=== PATIENT | female | born 1985 | race Caucasian/White ===

== ENCOUNTER → 2017-10-03 13:48 | Outpatient (CLI) | payer MEDICAID, SELFPAY ==
--- NOTE | 2017-10-03 13:50 | CT_ITS ---
STUDY: CT MAXILLOFACIAL SINUSES REASON FOR EXAM: Female, 32 years old. History of sinusitis. RADIATION DOSAGE (If Supplied By Facility): CTDIvol = ( 33.06 ) mGy, DLP = ( 821.45 ) mGycm TECHNIQUE: The patient was scanned in a multi detector CT scanner. High resolution axial imaging was performed without the administration of intravenous contrast material. Sagittal and coronal images were reconstructed. Individualized dose optimization techniques were used for this CT. COMPARISON: Comparison is made with prior study dated April 27, 2015. FINDINGS: FRONTAL SINUSES: Normal aeration, without mucosal inflammatory disease. ETHMOIDAL SINUSES: Normal aeration, without mucosal inflammatory disease. MAXILLARY SINUSES: Normal aeration, without mucosal inflammatory disease. SPHENOIDAL SINUSES: Normal aeration, without mucosal inflammatory disease. There is patency of the bilateral maxillary infundibuli with normal uncinate processes, ethmoid bullae, and hiatus semilunaris. There are lucrecia bullosa of the bilateral turbinates. Normal bilateral inferior turbinates. Normal midline nasal septum. There is patency of the bilateral nasal airways. The visualized osseous structures are normal. The visualized bilateral orbital contents are normal. CT/Sinus/Facial Bone IMPRESSION: Normal CT examination of the maxillofacial sinuses. Electronically Signed: Jim White MD at 15:16 EST Tel [phone], Service support ,
== END ==
PROVIDERS: Family Provider Family Medicine; PCP Family Medicine; Visit Provider Otolaryngology
DX: J32.9 Chronic sinusitis, unspecified (principal)
CPT/HCPCS: 70486

== ENCOUNTER 2019-04-01 01:38 | Emergency (ER) | payer OTHER, SELFPAY ==
[2019-04-01 01:39] VITALS: BP 141/83; PULSE 128; RESP 20; TEMP 37.3; O2SAT 96; BMI 34.1
--- NOTE | 2019-04-01 02:03 | CT_ITS ---
STUDY: CT ABDOMEN AND PELVIS WITHOUT CONTRAST REASON FOR EXAM: Female, 34 years old. Left upper quadrant pain which radiates to the back. Nausea and vomiting. Previous cholecystectomy. RADIATION DOSAGE (If Supplied By Facility): CTDIvol = ( 10.87 ) mGy, DLP = ( 526.92 ) mGycm TECHNIQUE: Transaxial images were obtained from the dome of the diaphragm to the symphysis pubis without oral contrast, and without intravenous contrast. Sagittal and coronal images were reconstructed. Individualized dose optimization techniques were used for this CT. COMPARISON: None. FINDINGS: The visualized lung bases are unremarkable. The visualized portions of the heart are within normal limits. There is decreased attenuation of the liver consistent with steatosis. There are surgical clips in the gallbladder fossa consistent with a prior cholecystectomy. There is no bile duct dilatation. There is a calcified granuloma in the spleen. Normal pancreas. Normal bilateral adrenal glands. Normal right kidney. Normal left kidney. Normal visualized stomach. Normal small intestine. Normal colon. The appendix is visualized on axial images 106-116 and it appears normal.. There is minimal atherosclerotic calcification of the abdominal aorta, without a demonstrated aneurysm. Normal inferior vena cava. Normal retroperitoneum. Normal urinary bladder. There surgical sutures in the right adnexal region.There is a small amount of free fluid in the posterior cul-de-sac of the pelvis. There is a small umbilical hernia which contains fat, but no bowel. Normal osseous structures. CT/Abdomen/Pelvis without Cont IMPRESSION: Previous cholecystectomy. Fatty liver. Small amount of free fluid in the posterior cul-de-sac of the pelvis, possibly physiologic. No evidence for acute pathology. No evidence for appendicitis or diverticulitis. No evidence for bowel obstruction or ileus. No demonstrated urinary calculi or hydronephrosis. Electronically Signed: Doug Osei MD at 3:20 EDT , Service support ,
--- NOTE | 2019-04-01 02:05 | ED.DCSUM_ITS ---
- ER Visit Summary Date of Service: 04/01/19 Chief Complaint: Abdominal pain History of Present Illness: The patient is a 34 F presenting with abdominal pain. States it started suddenly after eating a hamburger tonight. She has pain in the left upper quadrant. She complains of nausea and vomiting. She states she had diarrhea earlier today. She denies fever. Denies chest pain or shortness of breath. She has a history of GERD, IBS, PCOS. History of previous cholecystectomy. Physical Examination: Vitals are stable. Patient is afebrile. Alert no acute distress. HEENT exam is unremarkable. Neck is supple. Lungs are clear and equal bilaterally. Heart is regular rate and rhythm. Abdomen is soft left upper quadrant tenderness with no rebound or guarding Extremities are unremarkable. Skin is warm and dry. No focal neurologic deficit. Remainder of exam is unremarkable. Emergency Department Course and Treatment: Patient was given IV fluids, morphine, Zofran. CBC shows white count of 14.4. Chemistries normal except for potassium 3.4, glucose 120. Liver lipase are normal. D-dimer is normal. hCG negative. CT abdomen pelvis shows Previous cholecystectomy. Fatty liver. Small amount of free fluid in the posterior cul-de-sac of the pelvis, possibly physiologic. No evidence for acute pathology. No evidence for appendicitis or diverticulitis. No evidence for bowel obstruction or ileus. No demonstrated urinary calculi or hydronephrosis. Patient was given a GI cocktail. On reevaluation she is resting comfortably. She is given prescription for Pepcid and Zofran. Advised to follow-up with her primary care physician. Advised return to ED for worsening complaints. Disposition: Discharge home Impression: Abdominal pain This note was generated with [employer] dictation software. It may contain incorrect words, spelling, and punctuation that were not noted in review of the chart prior to signing ED Disposition - Plan for ED Patient: Instructions: ABDOMINAL PAIN, Unknown Cause, (Female) Prescriptions: Famotidine [Pepcid] 20 mg PO BID #28 tab Prescription Printed Ondansetron [Zofran Odt] 4 mg PO Q8H PRN PRN #10 tab PRN Reason: Nausea Prescription Printed Referrals: Terrence Lombardi MD [Primary Care Provider] - Rupert Chowdhury MD [NON-STAFF] -
[2019-04-01 02:07] LABS: Absolute Lymphocyte Count 5.39 X10^3/uL (0.83-4.51); Absolute Neutrophil Count 7.7 X10^3/uL (2.0-7.7); Basophil# 0.05 X10^3/uL; Basophil% 0.3 % (0-1); Eosinophil# 0.13 X10^3/uL; Eosinophils% 0.9 % (0-5); Hematocrit 39.8 % (37-47); Hemoglobin 13.4 g/dL (12.0-15.0); Lymphocyte # 5.39 X10^3/ul (4.0); Lymphocyte % 37.4 % (19-41); Mean Corp Hgb Conc 33.7 g/dL (32-36); Mean Corpuscular Hgb 29.8 pg (27.0-32.0); Mean Corpuscular Volume 88.4 fL (81-99); Mean Platelet Vol. 9.6 fl (6.2-12.0); Monocyte# 1.01 X10^3/uL; NRBC Flagged by Analyzer 0 % (0-5); Neutrophil # 7.73 X10^3/uL (2.7-7.7); Neutrophil % 53.7 % (47-70); POSITIVE DIFFERENTIAL YES; Platelet Count 336 K/mm3 (150-450); RBC Distribution Width CV 13.1 % (11.6-14.6); RBC Distribution Width SD 42.5 fl (35.1-43.9); White Blood Count 14.4 K/mm3 (4.4-11.0)
[2019-04-01 02:10] LABS: Internal QC Validated? YES +Cl - CLEAR BKGD; Pregnancy, Serum, hCG Quali. NEGATIVE Negative
[2019-04-01] MEDS: morphine 8 MG/ML Syringe IV (02:10)
[2019-04-01] MEDS: Ondansetron 4 MG/2 ML Vial IV (02:11)
[2019-04-01] MEDS: 0.9% Normal Saline 1,000 ML 1000 ML IV (02:11)
[2019-04-01 02:13] LABS: Anion Gap 8 (5-15); BUN 14 mg/dL (7-18); BUN/Creat Ratio 16.4 RATIO (10-20); Calcium,Total 9.1 mg/dL (8.5-10.1); Chloride 105 mmol/L (98-107); Creatinine, Serum 0.86 mg/dL (0.55-1.02); EST Glomerular Filtration Rate 82 mL/min (>60); Est Glom Filt Rate - Afr Amer 99 mL/min (>60); Estimated Creatinine Clearance 74.28 ml/min; Glucose 120 mg/dL (74-106); Potassium 3.4 mmol/L (3.5-5.1); Sodium Level 139 mmol/L (136-145)
[2019-04-01 02:19] LABS: Differential Indicated SCAN CRITERIA MET
[2019-04-01 02:30] LABS: AST(SGOT) 20 U/L (15-37); Alanine Aminotransfer ALT/SGPT 33 U/L (13-56); Alkaline Phosphatase 80 U/L (45-117); Bilirubin, Direct 0.18 mg/dL (0.00-0.30); Globulin 4.1 g/dL (2.2-4.2); Lipase 116 U/L (73-393); Protein, Total 8.1 g/dL (6.4-8.2)
[2019-04-01 02:49] LABS: D-Dimer Quantitative (DVT/PE) 0.41 FEU/ug/m (0.27-0.49)
[2019-04-01 02:57] LABS: Reactive Lymphocyte 1+
[2019-04-01 03:28] LABS: Bacteria 0 SEEN /hpf (None Seen); Mucous, Urine 0 SEEN /hpf (<or=2+); Red Blood Cells-Urine 0 SEEN /hpf (0-5); White Blood Cells 0 SEEN /hpf (0-5)
[2019-04-01 03:29] LABS: Color, Urine Yellow (Yellow); Glucose, Dipstick Normal (Normal); Ketone-Dipstick Negative (Negative); Leukocyte Esterase-Dipstick Negative /ul (Negative); Nitrite-Dipstick Negative (Negative); Occult Blood-Urine 10 /ul (Negative); Protein-Dipstick Negative (Negative); Specific Gravity, Urine 1.015 (1.002-1.030); Urine Bilirubin Dipstick Negative (Negative); Urine Clarity Clear (Clear); Urine Urobilinogen Normal (Normal)
[2019-04-01 03:36] LABS: Squamous Epithelial Cells - UA 0-5 SEEN /hpf (5-10)
[2019-04-01 03:38] VITALS: BP 111/73; PULSE 98; RESP 18; O2SAT 95
[2019-04-01] MEDS: Mag Hydrox/Al Hydrox/Simeth 30 ML UDC PO (04:59)
[2019-04-01 05:00] VITALS: BP 118/82; PULSE 97; RESP 18; O2SAT 97
--- NOTE | 2019-04-01 05:24 | ED.DEP ---
ED Disposition - Plan for ED Patient: Instructions: ABDOMINAL PAIN, Unknown Cause, (Female) Prescriptions: Famotidine [Pepcid] 20 mg PO BID #28 tablet Ondansetron [Zofran Odt] 4 mg PO Q8H PRN PRN #10 tablet PRN Reason: Nausea Referrals: Terrence Lombardi MD [Primary Care Provider] - Rupert Chowdhury MD [NON-STAFF] -
[2019-04-01] MEDS: Morphine 4 MG/ML Syringe IV (05:59)
[2019-04-01 06:23] VITALS: BP 123/82; PULSE 99; RESP 19; O2SAT 97
== END 2019-04-01 06:28 | disposition home or self-care (01) ==
LOC: ED 02:47
PROVIDERS: Emergency Provider Emergency Medicine; Family Provider Family Medicine; PCP Family Medicine
DX: R10.9 Unspecified abdominal pain (principal); Z90.49 Acquired absence of other specified parts of digestive tract; K76.0 Fatty (change of) liver, not elsewhere classified; K21.9 Gastro-esophageal reflux disease without esophagitis; K58.9 Irritable bowel syndrome, unspecified; E28.2 Polycystic ovarian syndrome
CPT/HCPCS: 74176; 80048; 80076; 81001; 83690; 84703; 85025; 85379; 96361; 96374; 96375; 96376; 99284; J7030; A4216; J2405

== ENCOUNTER → 2019-06-20 14:10 | Outpatient (CLI) | payer OTHER, SELFPAY ==
[2019-06-23 14:08] LABS: SJOGREN'S Anti-SS-A test < 0.2 AI (0.0-0.9); SJOGREN'S Anti-SS-B test < 0.2 AI (0.0-0.9)
[2019-06-23 14:37] LABS: ANTINUCLEAR ANTIBODIES DIRECT Negative (Negative)
== END ==
PROVIDERS: Family Provider Family Medicine; PCP Family Medicine; Referring Provider Otolaryngology Otolaryngology/Facial Plastic Surgery; Visit Provider Otolaryngology Otolaryngology/Facial Plastic Surgery
DX: J02.9 Acute pharyngitis, unspecified (principal); K11.20 Sialoadenitis, unspecified; M35.00 Sjogren syndrome, unspecified
CPT/HCPCS: 36415; 86038; 86235; 87070

== ENCOUNTER → 2021-04-28 16:48 | Outpatient (CLI) | payer OTHER, SELFPAY | PROVIDERS: PCP Family Medicine; Visit Provider Physician Assistant | DX: R51.9 Headache, unspecified (principal) | CPT/HCPCS: 87635; U0005; U0003 ==

== ENCOUNTER 2021-10-03 10:16 | Emergency (ER) | payer OTHER, SELFPAY ==
[2021-10-03 10:17] VITALS: BP 117/98; PULSE 111; RESP 18; TEMP 36.4; O2SAT 99; BMI 38.4
[2021-10-03 10:24] VITALS: O2SAT 100
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
[2021-10-03 11:09] VITALS: BP 124/89; PULSE 98; RESP 16; O2SAT 96
[2021-10-03] MEDS: Morphine 4 MG/ML Syringe IV ×2 (11:10→13:06)
[2021-10-03] MEDS: Ondansetron 4 MG/2 ML Vial IV (11:11)
[2021-10-03] MEDS: LORazepam 2 MG/ML Syringe 0.5 MG IV (11:12)
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
[2021-10-03] MEDS: cycloBENZAPRine HCl 10 MG Tablet PO (13:06)
[2021-10-03] MEDS: Ketorolac 30 MG/ML Syringe IV (13:06)
[2021-10-03 14:01] VITALS: BP 130/81; PULSE 87; RESP 18; O2SAT 98
== END 2021-10-03 14:01 | disposition home or self-care (01) ==
PROVIDERS: Emergency Provider Emergency Medicine; PCP Family Medicine; Visit Provider Emergency Medicine
DX: S09.90XA Unspecified injury of head, initial encounter (principal); F41.9 Anxiety disorder, unspecified; S16.1XXA Strain of muscle, fascia and tendon at neck level, initial encounter; S39.012A Strain of muscle, fascia and tendon of lower back, initial encounter; M79.642 Pain in left hand; V49.40XA Driver injured in collision with unspecified motor vehicles in traffic accident, initial encounter; Y92.410 Unspecified street and highway as the place of occurrence of the external cause
CPT/HCPCS: 70450; 72125; 72131; 73130; 96374; 96375; 96376; 99285; A4216; J2405

== ENCOUNTER 2022-04-12 23:04 | Emergency (ER) | payer OTHER, SELFPAY ==
[2022-04-12 23:05] VITALS: BP 130/82; PULSE 128; RESP 16; TEMP 36.8; O2SAT 97; BMI 33.5
--- NOTE | 2022-04-12 23:35 | CT_ITS ---
STUDY: CT ABDOMEN AND PELVIS WITHOUT CONTRAST REASON FOR EXAM: Female, 37 years old. right flank pain RADIATION DOSAGE (If Supplied By Facility): CTDIvol = ( 11.39 ) mGy, DLP = ( 537.69 ) mGycm TECHNIQUE: Transaxial images were obtained from the dome of the diaphragm to the symphysis pubis without oral contrast, and without intravenous contrast. Sagittal and coronal images were reconstructed. Individualized dose optimization techniques were used for this CT. COMPARISON: 04/01/2019 FINDINGS: Lung bases clear. Diffuse hepatic steatosis. Status post cholecystectomy. Unremarkable spleen, pancreas, and adrenals on this unenhanced study. Bowel loops nonobstructed. Normal appendix. No free air or free fluid. No adenopathy. Minimal vascular calcification. No abdominal aortic aneurysm. Every small fat-containing umbilical hernia. Sections through the pelvis demonstrate no adnexal mass. Urinary bladder incompletely distended. No acute osseous abnormalities. CT/Abdomen/Pelvis without Cont IMPRESSION: No acute finding the abdomen and pelvis on this unenhanced study. No radiopaque urolithiasis or hydroureteronephrosis on either side. Diffuse hepatic steatosis. Electronically Signed: Hamzah Alejandre MD at 0:42 EDT ,
[2022-04-12 23:43] LABS: White Blood Cells 0 SEEN /hpf (0-5)
[2022-04-12] MEDS: Morphine 4 MG/ML Syringe IV (23:43)
[2022-04-12] MEDS: 0.9% Normal Saline 1,000 ML 999 ML IV (23:43)
[2022-04-12] MEDS: Ondansetron 4 MG/2 ML Vial IV (23:43)
[2022-04-12 23:44] LABS: Absolute Lymphocyte Count 5.17 X10^3/uL (0.83-4.51); Absolute Neutrophil Count 4.9 X10^3/uL (2.0-7.7); Basophil# 0.07 X10^3/uL; Basophil% 0.6 % (0-1); Eosinophil# 0.09 X10^3/uL; Eosinophils% 0.8 % (0-5); Hematocrit 40.3 % (37-47); Hemoglobin 13.4 g/dL (12.0-15.0); Lymphocyte # 5.17 X10^3/ul (0.83-4.51); Lymphocyte % 45.5 % (19-41); Mean Corp Hgb Conc 33.3 g/dL (32-36); Mean Corpuscular Hgb 29.4 pg (27.0-32.0); Mean Corpuscular Volume 88.4 fL (81-99); Mean Platelet Vol. 9.8 fl (6.2-12.0); Monocyte# 1.11 X10^3/uL; Monocyte% 9.8 % (0-10); NRBC Flagged by Analyzer 0 % (0-5); Neutrophil # 4.86 X10^3/uL (2.7-7.7); Neutrophil % 42.7 % (47-70); POSITIVE DIFFERENTIAL YES; Platelet Count 339 K/mm3 (150-450); RBC Distribution Width CV 12.8 % (11.6-14.6); RBC Distribution Width SD 41.5 fl (35.1-43.9); Red Blood Count 4.56 M/mm3 (4.2-5.4); White Blood Count 11.4 K/mm3 (4.4-11.0)
[2022-04-12 23:46] LABS: Color, Urine Yellow (Yellow); Glucose, Dipstick Normal (Normal); Ketone-Dipstick Negative (Negative); Leukocyte Esterase-Dipstick Negative /ul (Negative); Nitrite-Dipstick Negative (Negative); Occult Blood-Urine 25 /ul (Negative); Protein-Dipstick 15 mg/dl (Negative); Specific Gravity, Urine 1.025 (1.002-1.030); Urine Bilirubin Dipstick Negative (Negative); Urine Clarity Clear (Clear); Urine Urobilinogen Normal (Normal)
[2022-04-12 23:48] LABS: Differential Indicated SCAN CRITERIA MET
[2022-04-12 23:52] LABS: Bacteria RARE /hpf (None Seen); Internal QC Validated? YES +Cl - CLEAR BKGD; Mucous, Urine RARE /hpf (<or=2+); Pregnancy, Urine Negative Negative; Red Blood Cells-Urine 0-5 SEEN /hpf (0-5); Squamous Epithelial Cells - UA 0-5 SEEN /hpf (5-10)
[2022-04-13 00:11] LABS: Atypical Lymphocyte RARE %; Differential Comment SCANNED
[2022-04-13 00:16] LABS: AST(SGOT) 27 U/L (15-37); Alanine Aminotransfer ALT/SGPT 34 U/L (13-56); Alkaline Phosphatase 58 U/L (45-117); Anion Gap 8 (5-15); BUN 18 mg/dL (7-18); Bilirubin, Direct 0.12 mg/dL (0.00-0.30); Calcium,Total 9.4 mg/dL (8.5-10.1); Chloride 107 mmol/L (98-107); Creatinine, Serum 0.86 mg/dL (0.55-1.02); EST Glomerular Filtration Rate 80 mL/min (>60); Est Glom Filt Rate - Afr Amer 97 mL/min (>60); Estimated Creatinine Clearance 72.21 ml/min; Globulin 4.1 g/dL (2.2-4.2); Glucose 96 mg/dL (74-106); Lipase 156 U/L (73-393); Potassium 3.8 mmol/L (3.5-5.1); Protein, Total 8.1 g/dL (6.4-8.2); Sodium Level 142 mmol/L (136-145)
[2022-04-13] MEDS: DiphenhydrAMINE 50 MG/ML Syringe 25 MG IV (01:16)
[2022-04-13] MEDS: HYDROmorphone 1 MG/ML Syringe IV ×2 (01:17→03:21)
--- NOTE | 2022-04-13 02:09 | CT_ITS ---
INDICATION: abd pain EXAMINATION: CTA CHEST, ABDOMEN AND PELVIS WITH CONTRAST - TECHNIQUE: A CTA of the chest, abdomen, and pelvis is obtained with sagittal and coronal reconstructed MIP views. Three-dimensional surface rendered sequence of the thoracic and abdominal aorta was obtained. A radiation dose optimization technique was used for this scan. mL of [id number]. Oral contrast: None. COMPARISON: None. FINDINGS: CHEST: No filling defect in the pulmonary arteries to suggest pulmonary embolism. No thoracic aortic aneurysm or dissection. No adenopathy. No pleural or pericardial effusion. No pneumothorax. Dependent atelectasis in the bilateral lower lobes. Mosaic attenuation the bilateral lungs. No pulmonary consolidation, mass, or suspicious nodule. No acute abnormality in the thoracic cage. Abdomen and pelvis: Diffuse hepatic steatosis. Unremarkable spleen, pancreas, adrenals, and bilateral kidneys. Status post cholecystectomy. Normal appendix. Bowel loops nonobstructed. No free air or free fluid. No adenopathy. Intact abdominal aorta and its major branches. Sections through the pelvis demonstrate no adnexal mass. Urinary bladder grossly intact. No acute osseous abnormality. CT/CTA Chst, Abd, Pel W and/or WO IMPRESSION: No evidence of pulmonary embolism. No thoracoabdominal aortic aneurysm or dissection. No acute finding in the chest, abdomen, and pelvis. Mosaic attenuation the bilateral lungs, suggestive of small airway disease. Diffuse hepatic steatosis. Electronically Signed: Hamzah Alejandre MD at 3:02 EDT ,
--- NOTE | 2022-04-13 04:07 | EDS_ITS ---
HPI History of Present Illness Chief Complaint: Abd Pain Narrative Narrative: Patient is a 37-year-old female with past medical history of anxiety PCOS and IBS-C as well as previous gallbladder dysfunction with cholecystectomy. 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 She reports in the last 24 to 48 hours she has had pain in the right upper abdomen with no known injury. She states that there is not 1 motion she remembers while working on the farm that caused severe pain. She states as time is past she feel like the pain is slowly increasing in severity. She states she has tried [id number] medications without symptom improvement. She reports mild nausea associated with the pain but denies any vomiting diarrhea dysuria or constipation. She denies any hematuria and denies any history of kidney stone. She states as the pain has been slowly worsening without any symptom improvement at home she presents for evaluation [facility] Medical History Anxiety Back pain IBS (irritable bowel syndrome) Polycystic bilateral ovaries Home Medications fluticasone propionate 50 mcg/actuation nasal spray,suspension 2 spray DAILY 08/08/15 [History Last Taken Unknown] cetirizine 10 mg capsule (Zyrtec) 10 mg PO DAILY 04/04/17 [History Last Taken Unknown] Albuterol Inhaler 1 dose inhalation Q6H PRN PRN Wheezing 04/01/19 [History Last Taken Unknown] dicyclomine 10 mg capsule 10 mg PO TIDAC PRN Pain 04/01/19 [History Last Taken Unknown] famotidine 20 mg tablet 20 mg PO BID #28 tabs 04/01/19 [Rx Last Taken Unknown] ondansetron 4 mg disintegrating tablet 4 mg PO Q8H PRN PRN Nausea #10 tabs 04/01/19 [Rx Last Taken Unknown] ranitidine HCl 150 mg tablet 150 mg PO DAILY 04/01/19 [History Last Taken Unknown] cyclobenzaprine 10 mg tablet 10 mg PO BID PRN muscle spasm #10 tabs 10/03/21 [Rx Last Taken Unknown] naproxen 500 mg tablet (Naprosyn) 500 mg PO BID PRN pain #20 tabs 10/03/21 [Rx Last Taken Unknown] oxycodone-acetaminophen 5 mg-325 mg tablet (Percocet) 1 tab PO Q6H PRN pain 3 days #10 tabs 10/03/21 [Rx Last Taken Unknown] oxycodone-acetaminophen 5 mg-325 mg tablet (Endocet) 1 tab PO Q6H PRN pain 3 days #12 tabs 04/13/22 [Rx Last Taken Unknown] Allergy/AdvReac Type Severity Reaction Status Date / Time No Known Allergies Allergy Verified 04/12/22 23:05 Surgical History (Updated 04/12/22 @ 23:23 by Rossy Rodriguez) History of cholecystectomy Social History Smoking Status: Never smoker ROS ROS ED Constitutional Constitutional ED: Denies chills or fever(s) ENT ENT ED: Denies sore throat Cardiovascular Cardiovascular: Denies chest pain Respiratory/Chest Respiratory/Chest: Denies cough or dyspnea Gastrointestinal Gastrointestinal: Reports abdominal pain and nausea; Denies diarrhea or vomiting Genitourinary Genitourinary ED: Denies dysuria or hematuria Musculoskeletal Musculoskeletal: Denies myalgias Integumentary Denies rash Neurologic Neurologic: Denies headache(s) Psychiatric Psychiatric: Reports anxiety Hematologic/Lymphatic Hematologic/Lymphatic: Denies easy bleeding or easy bruising EXAM Physical Exam Const Vital Signs: 04/12/22 23:05 Temperature 98.3 F Temperature Source Temporal Pulse Rate 128 H Respiratory Rate 16 Blood Pressure 130/82 H Blood Pressure Mean 98 Pulse Ox 97 Oxygen Delivery Method Room Air Positive well nourished, well developed and obese General Appearance ED: well developed Nutritional Appearance: obese HEENT Reports moist mucous membranes HEENT Narrative: No signs of infection in the posterior pharynx Eyes PERRL and EOMs intact bilaterally Neck supple Resp normal respiratory effort and clear to auscultation bilaterally Cardio regular rate and regular rhythm Rate: other Other Details: Radial pulses are plus 2 out of 4 bilaterally are e qual and GI non-distended GI Narrative: Abdomen is soft and nondistended with hypoactive bowel sounds. There is pain with palpation in the right upper quadrant without voluntary guarding or rigidity. No hernia palpated. No pulsatile mass or fluid wave. Palpation: soft Back/Spine Back/Spine Narrative: Mild right CVA tenderness no Extremity normal to inspection Neuro oriented x3 and CN's II-XII intact bilaterally Sensorium / Orientation: alert Psych Psych Narrative: Patient has a tearful/anxious affect Skin no rashes or lesions noted Skin Narrative: No overlying soft tissue changes to suggest trauma or infection MDM MDM MDM Narrative Medical decision making narrative: Patient presented to the ER afebrile and overall stable vitals she is slightly tachycardic. Her pain was reproducible with palpation but her gallbladder has been previously removed and she did not have jaundice or scleral icterus to suggest retained stone in the common bile duct. She did have mild CVA pain on exam and there was concern this is a possible kidney stone presentation. Secondary to this basic labs and a noncontrast CT were ordered. Labs revealed no clinically significant findings and CT without contrast revealed no acute pathology. Patient had initially been given morphine with minimal symptom improvement so Dilaudid was added. On reevaluation she does report improvement of pain but it still present and therefore elected to perform a CTA of her chest abdomen and pelvis especially with her tachycardia. CTA revealed no acute lung pathology such as pulmonary embolus and there was no signs of aortic dissection or intestinal pathology. Scans through the pelvis also revealed normal adnexa without cystic structures noted. Therefore at this time as patient has labs that do not show any clinically significant findings and [address] scans I do not feel there is need for further evaluation. I do not feel this is related to a possible ovarian torsion as the location of her pain is in the right upper quadrant instead of the lower abdomen and the CTA does not reveal any type of pelvic pathology. 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 On reevaluation the patient has had improvement of pain and with negative work-up I do not feel there is need for further evaluation so therefore patient will be discharged home and can talk to her family doctor about a possible MRI of her abdomen if symptoms persist Lab Data Attestation: I reviewed the patient's lab results. Labs: Laboratory Results - last 24 hr 04/12/22 04/12/22 04/12/22 23:15 23:20 23:20 WBC 11.4 H RBC 4.56 Hgb 13.4 Hct 40.3 MCV 88.4 MCH 29.4 MCHC 33.3 RDW Std Deviation 41.5 RDW Coeff of Ning 12.8 Plt Count 339 MPV 9.8 Immature Gran % (Auto) 0.600 Neut % (Auto) 42.7 L Lymph % (Auto) 45.5 H [place] % (Auto) 9.8 Eos % (Auto) 0.8 Baso % (Auto) 0.6 Absolute Neuts (auto) 4.9 Absolute Lymphs (auto) 5.17 H Nucleated RBC % 0 Differential Comment SCANNED Atypical Lymphocytes RARE Sodium 142 Potassium 3.8 Chloride 107 Carbon Dioxide 27.0 Anion Gap 8 BUN 18 Creatinine 0.86 Estim Creat Clear Calc 72.21 Est GFR (MDRD) Af Amer 97 Est GFR (MDRD) Non-Af 80 BUN/Creatinine Ratio 21.0 H Glucose 96 Calcium 9.4 Total Bilirubin 0.60 Direct Bilirubin 0.12 AST 27 ALT 34 Alkaline Phosphatase 58 Total Protein 8.1 Albumin 4.0 Globulin 4.1 Lipase 156 Urine Color Yellow Urine Clarity Clear Urine pH 6.0 Ur Specific Dagmar 1.025 Urine Protein 15 H Urine Glucose (UA) Normal Urine Ketones Negative Urine Occult Blood 25 H Urine Nitrite Negative Urine Bilirubin Negative Urine Urobilinogen Normal Ur Leukocyte Esterase Negative Urine RBC 0-5 SEEN Urine WBC 0 SEEN Ur Squamous Epith Cells 0-5 SEEN Urine Bacteria RARE Urine Mucus RARE Urine Test Negative Radiography Diagnostic Testing: Clinical Impression(s) from Imaging Studies Abdomen/Pelvis CT 04/12/22 23:35 IMPRESSION: No acute finding the abdomen and pelvis on this unenhanced study. No radiopaque urolithiasis or hydroureteronephrosis on either side. Diffuse hepatic steatosis. Electronically Signed: Hamzah Alejandre MD at 0:42 EDT Reading Location ID and State: [facility] / [place] Tel , Service support , Chest/Abdomen/Pelvis CTA 04/13/22 02:09 IMPRESSION: No evidence of pulmonary embolism. No thoracoabdominal aortic aneurysm or dissection. No acute finding in the chest, abdomen, and pelvis. Mosaic attenuation the bilateral lungs, suggestive of small airway disease. Diffuse hepatic steatosis. Electronically Signed: Hamzah Alejandre MD at 3:02 EDT Reading Location ID and State: [facility] / [place] Tel , Service support , Discharge Plan Triage Chief Complaint: Abd Pain ED Provider: Boo Montiel Dx/Rx/DC Orders Clinical Impression: Nonspecific abdominal pain, History of PCOS, Anxiety Instructions: Abdominal Pain Prescriptions: New oxycodone-acetaminophen [Endocet] 5-325 mg tablet 1 tab PO Q6H PRN (Reason: pain) 3 Days Qty: 12 0RF No Action fluticasone propionate 1 SPRAY spray,suspension 2 spray NASAL DAILY cetirizine [Zyrtec] 10 MG capsule 10 mg PO DAILY Albuterol Inhaler 1 dose inhalation Q6H PRN PRN (Reason: Wheezing) ranitidine HCl 150 MG tablet 150 mg PO DAILY dicyclomine 10 MG capsule 10 mg PO TIDAC PRN (Reason: Pain) famotidine 20 MG tablet 20 mg PO BID Qty: 28 0RF ondansetron 4 MG tablet 4 mg PO Q8H PRN PRN (Reason: Nausea) Qty: 10 0RF naproxen [Naprosyn] 500 mg tablet 500 mg PO BID PRN (Reason: pain) Qty: 20 0RF cyclobenzaprine 10 mg tablet 10 mg PO BID PRN (Reason: muscle spasm) Qty: 10 0RF oxycodone-acetaminophen [Percocet] 5-325 mg tablet 1 tab PO Q6H PRN (Reason: pain) 3 Days Qty: 10 0RF Primary Care Provider: Terrence Lombardi Referrals: Terrence Lombardi MD [Primary Care Provider] - Activity Restrictions/Additional Instructions: Please follow-up with your family doctor to discuss possible MRI of your abdomen if pain persists as your pain could be secondary to a abdominal wall muscle tear or a kidney stone that is not radiopaque and return to the ER should you have any further concerns Disposition Disposition: Home, Self Care
[2022-04-13 04:15] VITALS: BP 109/94; PULSE 97; RESP 18; O2SAT 97
[2022-04-13] MEDS: LORazepam 2 MG/ML Syringe 1 MG IV (04:15)
== END 2022-04-13 04:23 | disposition home or self-care (01) ==
PROVIDERS: Emergency Provider Emergency Medicine; PCP Family Medicine; Visit Provider Emergency Medicine
DX: R10.11 Right upper quadrant pain (principal); Z90.49 Acquired absence of other specified parts of digestive tract; K58.9 Irritable bowel syndrome, unspecified; E28.2 Polycystic ovarian syndrome; E66.9 Obesity, unspecified; F41.9 Anxiety disorder, unspecified
CPT/HCPCS: 71275; 74174; 74176; 80048; 80076; 81001; 81025; 83690; 85025; 96361; 96374; 96375; 96376; 99282; J7030; Q9967; A4216; J2405

== ENCOUNTER 2022-10-18 13:17 | Emergency (ER) | payer BC, SELFPAY ==
[2022-10-18 13:18] VITALS: BP 116/48; PULSE 123; RESP 18; TEMP 36.7; O2SAT 100
[2022-10-18 13:29] VITALS: BP 121/79; PULSE 100; RESP 16; TEMP 36.9; O2SAT 97; BMI 33.8
--- NOTE | 2022-10-18 14:01 | EDS_ITS ---
HPI HPI - GI History of Present Illness Chief Complaint: Abd Pain Narrative Narrative: 37-year-old female with history of IBS-C, peptic ulcer presenting with nausea/vomiting. This is progressed to diarrhea now. Symptoms started on Sunday which was 4 days ago. Patient states the night before she had biscuits and gravy. The morning before she became ill she had a piece of fish. Her ate fish and did not get ill. Patient is not had fevers or chills. She denies body aches. She has states that she is very sweaty and has been sweating through her clothes. Patient states she had some epigastric and left upper quadrant pain but states she felt a release and then had a large yellow bowel movement. She states since that time she is felt a little constipated and actually disimpacted herself, but she states the stool was soft. [facility] Medical History Anxiety Back pain IBS (irritable bowel syndrome) Polycystic bilateral ovaries Home Medications fluticasone propionate 50 mcg/actuation nasal spray,suspension 2 spray DAILY 08/08/15 [History Last Taken Unknown] cetirizine 10 mg capsule (Zyrtec) 10 mg PO DAILY 04/04/17 [History Last Taken Unknown] Albuterol Inhaler 1 dose inhalation Q6H PRN PRN Wheezing 04/01/19 [History Last Taken Unknown] dicyclomine 10 mg capsule 10 mg PO TIDAC PRN Pain 04/01/19 [History Last Taken Unknown] famotidine 20 mg tablet 20 mg PO BID #28 tabs 04/01/19 [Rx Last Taken Unknown] ondansetron 4 mg disintegrating tablet 4 mg PO Q8H PRN PRN Nausea #10 tabs 04/01/19 [Rx Last Taken Unknown] ranitidine HCl 150 mg tablet 150 mg PO DAILY 04/01/19 [History Last Taken Unknown] cyclobenzaprine 10 mg tablet 10 mg PO BID PRN muscle spasm #10 tabs 10/03/21 [Rx Last Taken Unknown] naproxen 500 mg tablet (Naprosyn) 500 mg PO BID PRN pain #20 tabs 10/03/21 [Rx Last Taken Unknown] oxycodone-acetaminophen 5 mg-325 mg tablet (Percocet) 1 tab PO Q6H PRN pain 3 days #10 tabs 10/03/21 [Rx Last Taken Unknown] oxycodone-acetaminophen 5 mg-325 mg tablet (Endocet) 1 tab PO Q6H PRN pain 3 days #12 tabs 04/13/22 [Rx Last Taken Unknown] omeprazole 40 mg capsule,delayed release 40 mg PO DAILY #30 caps 10/18/22 [Rx Last Taken Unknown] ondansetron 4 mg disintegrating tablet 4 mg PO Q8H PRN PRN Nausea #14 tabs 10/18/22 [Rx Last Taken Unknown] sucralfate 100 mg/mL oral suspension (Carafate) 10 ml PO BID PRN EPIGASTRIC PAIN #400 mL 10/18/22 [Rx Last Taken Unknown] Allergy/AdvReac Type Severity Reaction Status Date / Time No Known Allergies Allergy Verified 10/18/22 13:17 Family History no significant family his Surgical History History of cholecystectomy Social History Smoking Status: Never smoker ROS ROS ED Constitutional Constitutional ED: Denies chills, fever(s) or sweats Eyes Eyes: Denies blurry vision or change in vision ENT ENT ED: Denies ear pain or sore throat Cardiovascular Cardiovascular: Denies chest pain, palpitations or racing heartbeat Respiratory/Chest Respiratory/Chest: Denies cough, dyspnea or sputum Gastrointestinal Gastrointestinal: Reports abdominal pain, diarrhea, nausea and vomiting; Denies constipation Genitourinary Genitourinary ED: Denies dysuria, hematuria or urinary frequency Musculoskeletal Musculoskeletal: Denies arthralgias, myalgias or neck pain Integumentary Denies abscess, Abrasions or rash Neurologic Neurologic: Denies headache(s), paresthesias or weakness Psychiatric Psychiatric: Denies anxiety, depression, suicidal ideation or suicidal thoughts Endocrine Endocrinology: Denies polydipsia or polyuria EXAM Physical Exam Narrative Exam Narrative: P Const Vital Signs: 10/18/22 13:18 10/18/22 13:29 10/18/22 15:21 Temperature 98.0 F 98.4 F Temperature Source Temporal Oral Pulse Rate 123 H 100 121 H Respiratory Rate 18 16 18 Blood Pressure 116/48 L 121/79 H Blood Pressure Mean 70 93 Pulse Ox 100 97 Oxygen Delivery Method Room Air Room Air Positive well nourished General Appearance ED: NAD HEENT Reports moist mucous membranes and dry mucous membranes normocephalic Mouth ED: Yes dry mucous membranes Mouth: dry mucous membranes Eyes PERRL and EOMs intact bilaterally Resp normal respiratory effort and clear to auscultation bilaterally Auscultation: Negative for rales, rhonchi or wheezes Cardio regular rate and regular rhythm GI Palpation: tender epigastric; Negative for guarding or rigid Back/Spine no CVA tenderness Neuro CN's II-XII intact bilaterally Sensorium / Orientation: alert Psych mental status grossly normal and thought process normal Skin no wounds MDM MDM MDM Narrative Medical decision making narrative: atient presenting with nausea, vomiting, diarrhea. She has not had fevers but she does feel like she is having chills currently. She also states she has had the sweats. Patient medicated with Pepcid, Ativan, Zofran, Benadryl, Thorazine. Differential includes but not limited to gastritis, pancreatitis, PUD, gastroenteritis. Abdominal exam is benign. Obtain blood work and CBC showed no leukocytosis. Hemoglobin hematocrit were baseline. Platelets are normal. Patient's renal function and electrolytes are within normal limits. There is no evidence of dehydration or prerenal azotemia. Her glucose is elevated at 107 without anion gap. Liver function enzymes are normal. Lipase is normal. Serum test negative. Nursing staff came to me to reported the patient was still having discomfort. When I went into the room to evaluate the patient she was resting comfortably. I asked her how she felt and she stated I feel fine how are you. Patient does report that she still has some mild epigastric discomfort and some crampy abdominal pain. At this point she is given a GI cocktail and Bentyl. On reevaluation at 350 she is sleeping comfortably. She is currently in no distress. Her is here and although she is a little groggy I did discuss all the follow-up and treatments with him. She was given follow-up with GI. She is given omeprazole to take daily, Zofran for nausea, Carafate. Return precautions were discussed. Impression: 1. History of IBS-C 2. Nausea/vomiting 3. Diarrhea 4. Abdominal pain Lab Data Attestation: I reviewed the patient's lab results. Labs: Laboratory Results - last 24 hr 02/10/18/22 10/18/22 14:15 14:15 14:15 WBC 8.2 RBC 4.81 Hgb 14.4 Hct 43.4 MCV 90.2 MCH 29.9 MCHC 33.2 RDW Std Deviation 40.6 RDW Coeff of Ning 12.4 Plt Count 303 MPV 9.0 Immature Gran % (Auto) 0.500 Neut % (Auto) 74.5 H Lymph % (Auto) 16.9 L [place] % (Auto) 7.2 Eos % (Auto) 0.7 Baso % (Auto) 0.2 Absolute Neuts (auto) 6.1 Absolute Lymphs (auto) 1.39 Nucleated RBC % 0 Sodium 140 Potassium 3.7 Chloride 106 Carbon Dioxide 28.0 Anion Gap 6 BUN 14 Creatinine 0.73 Estim Creat Clear Calc 85.07 Est GFR (MDRD) Af Amer 116 Est GFR (MDRD) Non-Af 96 BUN/Creatinine Ratio 19.1 Glucose 107 H Calcium 9.5 Total Bilirubin 0.90 AST 16 ALT 22 Alkaline Phosphatase 65 Total Protein 8.4 H Albumin 4.3 Globulin 4.1 Albumin/Globulin Ratio 1.0 Lipase 66 L Serum , Qual NEGATIVE Discharge Plan Triage Chief Complaint: Abd Pain ED Provider: Zach Adams Dx/Rx/DC Orders Instructions: ED GERD (Adult), ED Gastroenteritis, Noninfectious, ED PUD Prescriptions: New ondansetron 4 mg tablet,disintegrating 4 mg PO Q8H PRN PRN (Reason: Nausea) Qty: 14 0RF omeprazole 40 mg capsule,delayed release(DR/EC) 40 mg PO DAILY Qty: 30 0RF sucralfate [Carafate] 100 mg/mL suspension 10 ml PO BID PRN (Reason: EPIGASTRIC PAIN) Qty: 400 0RF No Action fluticasone propionate 1 SPRAY spray,suspension 2 spray NASAL DAILY cetirizine [Zyrtec] 10 MG capsule 10 mg PO DAILY Albuterol Inhaler 1 dose inhalation Q6H PRN PRN (Reason: Wheezing) ranitidine HCl 150 MG tablet 150 mg PO DAILY dicyclomine 10 MG capsule 10 mg PO TIDAC PRN (Reason: Pain) famotidine 20 MG tablet 20 mg PO BID Qty: 28 0RF ondansetron 4 MG tablet 4 mg PO Q8H PRN PRN (Reason: Nausea) Qty: 10 0RF naproxen [Naprosyn] 500 mg tablet 500 mg PO BID PRN (Reason: pain) Qty: 20 0RF cyclobenzaprine 10 mg tablet 10 mg PO BID PRN (Reason: muscle spasm) Qty: 10 0RF oxycodone-acetaminophen [Percocet] 5-325 mg tablet 1 tab PO Q6H PRN (Reason: pain) 3 Days Qty: 10 0RF oxycodone-acetaminophen [Endocet] 5-325 mg tablet 1 tab PO Q6H PRN (Reason: pain) 3 Days Qty: 12 0RF Primary Care Provider: Terrence Lombardi Referrals: Terrence Lombardi MD [Primary Care Provider] - Friend,DO Anthony [Med Staff - Active Staff] - As soon as possible Disposition Disposition: Home, Self Care
[2022-10-18] MEDS: LORazepam 2 MG/ML Syringe 0.5 MG IV (14:12)
[2022-10-18] MEDS: Ondansetron 4 MG/2 ML Vial IV (14:12)
[2022-10-18] MEDS: 0.9% Normal Saline 1,000 ML 999 ML IV ×2 (14:13→16:02)
[2022-10-18 14:21] LABS: Absolute Lymphocyte Count 1.39 X10^3/uL (0.83-4.51); Absolute Neutrophil Count 6.1 X10^3/uL (2.0-7.7); Basophil# 0.02 X10^3/uL; Basophil% 0.2 % (0-1); Eosinophil# 0.06 X10^3/uL; Eosinophils% 0.7 % (0-5); Hematocrit 43.4 % (37-47); Hemoglobin 14.4 g/dL (12.0-15.0); Lymphocyte # 1.39 X10^3/ul (0.83-4.51); Lymphocyte % 16.9 % (19-41); Mean Corp Hgb Conc 33.2 g/dL (32-36); Mean Corpuscular Hgb 29.9 pg (27.0-32.0); Mean Corpuscular Volume 90.2 fL (81-99); Monocyte# 0.59 X10^3/uL; Monocyte% 7.2 % (0-10); NRBC Flagged by Analyzer 0 % (0-5); Neutrophil # 6.11 X10^3/uL (2.7-7.7); Neutrophil % 74.5 % (47-70); Platelet Count 303 K/mm3 (150-450); RBC Distribution Width CV 12.4 % (11.6-14.6); RBC Distribution Width SD 40.6 fl (35.1-43.9); Red Blood Count 4.81 M/mm3 (4.2-5.4); White Blood Count 8.2 K/mm3 (4.4-11.0)
[2022-10-18] MEDS: Famotidine 200 MG/20 ML MDV 20 MG in 0.9% Normal Saline (Pres. free 8 ML 300 MG IV (14:24)
[2022-10-18 14:36] LABS: Internal QC Validated? YES +Cl - CLEAR BKGD; Pregnancy, Serum, hCG Quali. NEGATIVE Negative
[2022-10-18 14:44] LABS: AST(SGOT) 16 U/L (15-37); Alanine Aminotransfer ALT/SGPT 22 U/L (13-56); Albumin, Serum 4.3 g/dL (3.2-5.0); Alkaline Phosphatase 65 U/L (45-117); Anion Gap 6 (5-15); BUN 14 mg/dL (7-18); BUN/Creat Ratio 19.1 RATIO (10-20); Calcium,Total 9.5 mg/dL (8.5-10.1); Chloride 106 mmol/L (98-107); Creatinine, Serum 0.73 mg/dL (0.55-1.02); EST Glomerular Filtration Rate 96 mL/min (>60); Est Glom Filt Rate - Afr Amer 116 mL/min (>60); Estimated Creatinine Clearance 85.07 ml/min; Globulin 4.1 g/dL (2.2-4.2); Glucose 107 mg/dL (74-106); Lipase 66 U/L (73-393); Potassium 3.7 mmol/L (3.5-5.1); Protein, Total 8.4 g/dL (6.4-8.2); Sodium Level 140 mmol/L (136-145)
--- NOTE | 2022-10-18 15:04 | ED.RN ---
pt feels like having reaction to Worksteady.ioazine states heart racing. dr rausch
--- NOTE | 2022-10-18 15:05 | EKG12_ITS ---
Test Reason : MED REACTION Blood Pressure : / mmHG Vent. Rate : 132 BPM Atrial Rate : 132 BPM P-R Int : 134 ms QRS Dur : 078 ms QT Int : 306 ms P-R-T Axes : 055 057 025 degrees QTc Int : 453 ms Sinus tachycardia Otherwise normal ECG Confirmed by GISELLE VASQUEZ, MIKE ([id number]), photograph editor SERGIO BENNETT ([id number]) on 10/20/2022 1:02:11 PM Referred By: EUGENIO Confirmed By:MIKE DESAI MD
[2022-10-18] MEDS: Mag Hydrox/Al Hydrox/Simeth 30 ML UDC PO (15:14)
[2022-10-18] MEDS: Dicyclomine 20 MG/2 ML Vial IM (15:15)
[2022-10-18 15:21] VITALS: PULSE 121; RESP 18
--- NOTE | 2022-10-18 17:20 | CT_ITS ---
EXAM: CT ABDOMEN AND PELVIS WITH INTRAVENOUS CONTRAST CLINICAL INDICATION: pain TECHNIQUE: Helically acquired images were obtained of the abdomen and pelvis with intravenous contrast. This CT exam was performed using one or more of the following dose reduction techniques: automated exposure control, adjustment of the mA and/or kV according to patient size, and/or use of iterative reconstruction technique. This report was created using inDinero report generation technology. CONTRAST: IV 100mL Isovue-300 COMPARISON: 04/13/2022. FINDINGS: LOWER THORAX: Unremarkable. Lung bases are clear. No cardiomegaly. No significant pericardial effusion. ABDOMEN: LIVER: Unremarkable. Homogeneous. No focal mass. GALLBLADDER AND BILE DUCTS: Gallbladder is not visualized. No intra- or extrahepatic biliary ductal dilation. PANCREAS: Unremarkable. No focal cystic or solid mass. SPLEEN: Calcification in the spleen consistent with old healed granulomatous disease. The spleen is otherwise unremarkable. ADRENALS: Unremarkable. No nodules. KIDNEYS AND URETERS: Unremarkable. Normal renal size and position. No hydronephrosis. STOMACH AND BOWEL: Unremarkable. No stomach or bowel distention. No focal inflammatory change. PELVIS: APPENDIX: Normal visualized appendix. BLADDER: Unremarkable. REPRODUCTIVE: Unremarkable as visualized. No mass. ABDOMEN and PELVIS: INTRAPERITONEAL SPACE: Unremarkable. No ascites or other fluid collection. No free air. BONES/JOINTS: Unremarkable. No suspicious lytic or blastic abnormality. SOFT TISSUES: Unremarkable. No discrete abdominal or pelvic wall hernia. VASCULATURE: Unremarkable. Abdominal aorta is normal in caliber. LYMPH NODES: Unremarkable. No enlarged lymph nodes. CT/Abdomen/Pelvis W IV Cont ONLY IMPRESSION: No acute findings in the abdomen or pelvis. Electronically Signed: Belen Flores MD at 18:39 EST Reading Location ID and State: [id number] / Tel , Service support ,
[2022-10-18 17:43] VITALS: PULSE 133; RESP 18; O2SAT 98
[2022-10-18 17:49] LABS: Bacteria 0 SEEN /hpf (None Seen); Mucous, Urine 0 SEEN /hpf (<or=2+); Red Blood Cells-Urine 0 SEEN /hpf (0-5); Squamous Epithelial Cells - UA 0 SEEN /hpf (5-10); White Blood Cells 0 SEEN /hpf (0-5)
[2022-10-18 17:54] LABS: Color, Urine Yellow (Yellow); Glucose, Dipstick Normal (Normal); Ketone-Dipstick 15 mg/dl (Negative); Leukocyte Esterase-Dipstick Negative /ul (Negative); Nitrite-Dipstick Negative (Negative); Occult Blood-Urine Negative /ul (Negative); Protein-Dipstick Negative (Negative); Urine Bilirubin Dipstick Negative (Negative); Urine Clarity Clear (Clear); Urine Urobilinogen Normal (Normal)
[2022-10-18 20:39] VITALS: BP 122/67; PULSE 120; RESP 18; O2SAT 100
== END 2022-10-18 20:40 | disposition home or self-care (01) ==
PROVIDERS: Emergency Provider Student in an Organized Health Care Education/Training Program; PCP Family Medicine; Visit Provider Student in an Organized Health Care Education/Training Program
DX: R11.2 Nausea with vomiting, unspecified (principal); R10.9 Unspecified abdominal pain; K58.0 Irritable bowel syndrome with diarrhea; E28.2 Polycystic ovarian syndrome; F41.9 Anxiety disorder, unspecified; Z87.11 Personal history of peptic ulcer disease
CPT/HCPCS: 74177; 80053; 81001; 83690; 84703; 85025; 93005; 99285; J7030; Q9967; J2405; J3490

== ENCOUNTER 2022-10-19 10:56 | Emergency (ER) | payer BC, SELFPAY ==
[2022-10-19 10:57] VITALS: BP 109/85; PULSE 124; RESP 18; TEMP 37.1; O2SAT 100
[2022-10-19] MEDS: Dicyclomine 10 MG Capsule 20 MG PO (11:22)
[2022-10-19 11:28] LABS: Absolute Lymphocyte Count 2.09 X10^3/uL (0.83-4.51); Absolute Neutrophil Count 8.6 X10^3/uL (2.0-7.7); Basophil# 0.03 X10^3/uL; Basophil% 0.3 % (0-1); Hemoglobin 13.2 g/dL (12.0-15.0); Lymphocyte # 2.09 X10^3/ul (0.83-4.51); Lymphocyte % 17.8 % (19-41); Mean Corpuscular Hgb 29.5 pg (27.0-32.0); Mean Corpuscular Volume 89.3 fL (81-99); Mean Platelet Vol. 9.2 fl (6.2-12.0); Monocyte# 0.98 X10^3/uL; Monocyte% 8.3 % (0-10); NRBC Flagged by Analyzer 0 % (0-5); Neutrophil # 8.61 X10^3/uL (2.7-7.7); Neutrophil % 73.1 % (47-70); Platelet Count 304 K/mm3 (150-450); RBC Distribution Width CV 12.3 % (11.6-14.6); RBC Distribution Width SD 40.2 fl (35.1-43.9); Red Blood Count 4.48 M/mm3 (4.2-5.4); White Blood Count 11.8 K/mm3 (4.4-11.0)
--- NOTE | 2022-10-19 11:39 | ED.RN ---
discussed with pt benefits of oral hydration. given multiple cups water. pt tense from being cold given multiple warm blankets to help her relax . discussed bentyl and timing for relief. pt verbalizes understanding. no further needs voiced.
[2022-10-19 11:44] LABS: AST(SGOT) 15 U/L (15-37); Alanine Aminotransfer ALT/SGPT 21 U/L (13-56); Alkaline Phosphatase 60 U/L (45-117); Bilirubin, Direct 0.23 mg/dL (0.00-0.30); Globulin 3.9 g/dL (2.2-4.2); Lipase 55 U/L (73-393); Protein, Total 7.9 g/dL (6.4-8.2)
[2022-10-19 12:14] LABS: Bacteria 0 SEEN /hpf (None Seen); Color, Urine Yellow (Yellow); Glucose, Dipstick Normal (Normal); Ketone-Dipstick 50 mg/dl (Negative); Leukocyte Esterase-Dipstick Negative /ul (Negative); Mucous, Urine 0 SEEN /hpf (<or=2+); Nitrite-Dipstick Negative (Negative); Occult Blood-Urine 10 /ul (Negative); Protein-Dipstick Negative (Negative); Specific Gravity, Urine 1.015 (1.002-1.030); Urine Bilirubin Dipstick Negative (Negative); Urine Clarity Clear (Clear); Urine Urobilinogen Normal (Normal); White Blood Cells 0 SEEN /hpf (0-5)
[2022-10-19 12:24] LABS: Red Blood Cells-Urine 0-5 SEEN /hpf (0-5); Squamous Epithelial Cells - UA 0-5 SEEN /hpf (5-10)
--- NOTE | 2022-10-19 12:24 | ED.VIS.GI ---
HPI HPI - GI History of Present Illness Chief Complaint: Abd Pain Detail of Chief Complaint: Abdominal pain and bilateral side pain Informant: patient Abdominal Pain/Flank Pain Onset: Days Context: Sudden Onset Timing: Continuous and Waxes and wanes Quality: Dull (Right and left side) and Sharp (Upper abdomen/epigastrium) Location: Epigastric Current Severity: Severe Maximum Severity: Severe Worsened by: - (Nothing specific) Relieved by: Nothing Nausea/Vomiting/Emesis GI Symptom: Positive for Nausea; Negative for Vomiting Diarrhea/Melena/Hematochezia GI Symptom: Positive for Diarrhea (She had diarrhea yesterday but none today.); Negative for Melena or Hematochezia Onset: Days Stool Quality: Positive for Loose and Watery Associated Symptoms Associated Symptoms: Negative for Dysuria, Frequency, Hematuria or Urgency Narrative Narrative: Patient is a 37-year-old female with history of peptic ulcers and nausea with abdominal pain. Patient was seen last evening. She was seen for nausea, vomit diarrhea. She had a significant work-up which included a CT of the abdomen and pelvis. No obvious cause of her abnormality was noted. The ER note from yesterday was reviewed. The CAT scan was independently reviewed and as well as the interpretation by radiologist. Patient presents because severe pain. Patient is tearful and reports severe pain. She was noted to be hysterical by the triage nurse. Patient's vital signs noted. She is complaining of severe sharp epigastric pain and bilateral lateral abdominal pain. That pain is dull achy. There is nothing specific that makes the pain better or worse. She denies fever, chills night sweats. She denies headache, visual, ocular auditory symptoms. She denies ringing or ears, decreased hearing or drainage from her ears. She denies sore throat. She denies cough or shortness of breath. She denies chest pain. Based on medicines she has a presumed diagnosis of peptic ulcer disease. She also has history possibly of irritable bowel syndrome. Prior similar symptoms: Yes Recent Illness/Hospitalization: Yes [facility] Medical History Anxiety Back pain IBS (irritable bowel syndrome) Polycystic bilateral ovaries Home Medications fluticasone propionate 50 mcg/actuation nasal spray,suspension 2 spray DAILY 08/08/15 [History Last Taken Unknown] cetirizine 10 mg capsule (Zyrtec) 10 mg PO DAILY 04/04/17 [History Last Taken Unknown] Albuterol Inhaler 1 dose inhalation Q6H PRN PRN Wheezing 04/01/19 [History Last Taken Unknown] dicyclomine 10 mg capsule 10 mg PO TIDAC PRN Pain 04/01/19 [History Last Taken Unknown] famotidine 20 mg tablet 20 mg PO BID #28 tabs 04/01/19 [Rx Last Taken Unknown] ondansetron 4 mg disintegrating tablet 4 mg PO Q8H PRN PRN Nausea #10 tabs 04/01/19 [Rx Last Taken Unknown] ranitidine HCl 150 mg tablet 150 mg PO DAILY 04/01/19 [History Last Taken Unknown] cyclobenzaprine 10 mg tablet 10 mg PO BID PRN muscle spasm #10 tabs 10/03/21 [Rx Last Taken Unknown] naproxen 500 mg tablet (Naprosyn) 500 mg PO BID PRN pain #20 tabs 10/03/21 [Rx Last Taken Unknown] oxycodone-acetaminophen 5 mg-325 mg tablet (Percocet) 1 tab PO Q6H PRN pain 3 days #10 tabs 10/03/21 [Rx Last Taken Unknown] oxycodone-acetaminophen 5 mg-325 mg tablet (Endocet) 1 tab PO Q6H PRN pain 3 days #12 tabs 04/13/22 [Rx Last Taken Unknown] omeprazole 40 mg capsule,delayed release 40 mg PO DAILY #30 caps 10/18/22 [Rx Last Taken Unknown] ondansetron 4 mg disintegrating tablet 4 mg PO Q8H PRN PRN Nausea #14 tabs 10/18/22 [Rx Last Taken Unknown] sucralfate 100 mg/mL oral suspension (Carafate) 10 ml PO BID PRN EPIGASTRIC PAIN #400 mL 10/18/22 [Rx Last Taken Unknown] Allergy/AdvReac Type Severity Reaction Status Date / Time chlorpromazine AdvReac Other Verified 10/18/22 16:27 [From Thorazine] Surgical History History of cholecystectomy Social History (Updated 10/19/22 @ 12:[address] Murtaza Snider MD) household members: family and children Smoking Status: Never smoker substance use type: does not use ROS ROS ED Constitutional Constitutional ED: Denies chills, fever(s), subjective, sweats or weight loss ENT ENT ED: Denies ear pain, rhinorrhea or sore throat Cardiovascular Cardiovascular: Denies chest pain, palpitations or racing heartbeat Respiratory/Chest Respiratory/Chest: Denies cough, dyspnea or dyspnea on exertion Gastrointestinal Gastrointestinal: Reports abdominal pain and nausea; Denies constipation, diarrhea, melena or vomiting Genitourinary Genitourinary ED: Denies dysuria, hematuria or urinary frequency Musculoskeletal Musculoskeletal: Denies arthralgias, back pain, myalgias or neck pain Integumentary Denies Abrasions or rash Neurologic Neurologic: Denies headache(s), paresthesias or weakness Psychiatric Psychiatric: Denies anxiety or depression Endocrine Endocrinology: Denies polydipsia, polyphagia or polyuria Hematologic/Lymphatic Hematologic/Lymphatic: Denies easy bleeding or easy bruising Allergic/Immunologic Allergic/Immunologic ED: Denies mouth swelling or tongue swelling EXAM Physical Exam Const Vital Signs: 10/19/22 10:57 Temperature 98.8 F Temperature Source Temporal Pulse Rate 124 H Respiratory Rate 18 Blood Pressure 109/85 H Blood Pressure Mean 93 Pulse Ox 100 Oxygen Delivery Method Room Air Positive well nourished, well developed and obese; Negative for cachectic, contractures or unkempt Constitutional Narrative: Patient is not diaphoretic or cyanotic. She is tachycardic. General Appearance ED: well developed; Negative for unkempt, cachectic, contractures or pallor Nutritional Appearance: obese; Negative for cachectic HEENT Reports TM's clear and moist mucous membranes HEENT Narrative: Posterior pharynx is unremarkable. normocephalic and atraumatic Tympanic Membrane ED: Yes TM's clear Eyes PERRL and EOMs intact bilaterally General Eye ED: Negative for pale conjunctiva or scleral icterus Neck no lymphadenopathy, supple and no JVD Resp normal respiratory effort and clear to auscultation bilaterally Cardio regular rhythm, S1 normal heart sound, S2 normal heart sound and no murmurs Rate: tachycardic GI non-tender, non-distended and no masses Auscultation: hypoactive bowel sounds Palpation: soft and tender other (Diffuse and proportion to tactile stimulus. Patient complained of severe pain when I placed my stethoscope on her abdomen for auscultation.) Back/Spine no CVA tenderness Thoracic Spine / Upper Back: Negative for thoracic spinal tenderness Lumbar Spine / Lower Back: Negative for lumbar spinal tenderness Extremity full ROM Extremity Narrative: There is no clubbing. There is no cyanosis capillary refill is normal. General Extremety ED: Negative for edema or tenderness General Extremity: Negative for edema Neuro CN's II-XII intact bilaterally, moves all extremities, no sensory deficits noted and gait normal Psych Negative for mental status grossly normal or thought process normal Psych Narrative: Patient is somewhat histrionic. She is tearful. Appearance: Negative for unkempt Skin no wounds General Skin Exam: Negative for jaundice or pallor Lesions: no lesions Rashes: no rashes MDM MDM MDM Narrative Medical decision making narrative: Since patient was told to come back we will repeat blood work to determine there is any change from yesterday. Since CT scan was done less than 24 hours and revealed no abnormality and based on my exam patient has a nonsurgical abdomen and will not repeat unless there is a significant change in laboratory results from yesterday. Differential diagnosis is abdominal pain of unknown etiology, biliary disease, pathology or psychological. Lab Data Attestation: I reviewed the patient's lab results. Lab results narrative: Count is slightly elevated from yesterday. There is no significant shift. Liver profile and lipase are unremarkable. UA reveals ketones. Labs: Laboratory Results - last 24 hr 10/19/22 10/19/22 10/19/22 11:20 11:20 12:05 WBC 11.8 H RBC 4.48 Hgb 13.2 Hct 40.0 MCV 89.3 MCH 29.5 MCHC 33.0 RDW Std Deviation 40.2 RDW Coeff of Ning 12.3 Plt Count 304 MPV 9.2 Immature Gran % (Auto) 0.500 Neut % (Auto) 73.1 H Lymph % (Auto) 17.8 L [place] % (Auto) 8.3 Eos % (Auto) 0.0 Baso % (Auto) 0.3 Absolute Neuts (auto) 8.6 H Absolute Lymphs (auto) 2.09 Nucleated RBC % 0 Total Bilirubin 0.70 Direct Bilirubin 0.23 AST 15 ALT 21 Alkaline Phosphatase 60 Total Protein 7.9 Albumin 4.0 Globulin 3.9 Lipase 55 L Urine Color Yellow Urine Clarity Clear Urine pH 8.0 Ur Specific [place] 1.015 Urine Protein Negative Urine Glucose (UA) Normal Urine Ketones 50 H Urine Occult Blood 10 H Urine Nitrite Negative Urine Bilirubin Negative Urine Urobilinogen Normal Ur Leukocyte Esterase Negative Treatment and Re-Evaluation Narrative: Patient was informed of her results. Patient was informed the cause of her pain is unknown. She was informed that the percent of patients to come to any emergency department in [facility] the cause is unknown. Since her work-up yesterday and laboratory studies today were negative there is no indication of repeat CAT scan. She was informed that 50% of patients who present with abdominal pain the cause is unknown. She was informed that 50% of those that have no known cause that there is a psychological basis. Patient was informed that she needs to follow-up with her doctor for outpatient testing and to think of other possibilities. Her questions were answered to her and her [id number] satisfaction. The patient liaison was present during the exit interview, Chelsie Romain Churchill. Discharge Plan Triage Chief Complaint: Abd Pain ED Provider: Murtaza Snider Dx/Rx/DC Orders Clinical Impression: Abdominal pain of unknown cause, History of IBS, BMI 40.0-44.9, adult Instructions: ED Abdominal Pain Unkn Cause Fem Prescriptions: No Action fluticasone propionate 1 SPRAY spray,suspension 2 spray NASAL DAILY Zyrtec 10 MG capsule 10 mg PO DAILY Albuterol Inhaler 1 dose inhalation Q6H PRN PRN (Reason: Wheezing) ranitidine HCl 150 MG tablet 150 mg PO DAILY dicyclomine 10 MG capsule 10 mg PO TIDAC PRN (Reason: Pain) famotidine 20 MG tablet 20 mg PO BID Qty: 28 0RF ondansetron 4 MG tablet 4 mg PO Q8H PRN PRN (Reason: Nausea) Qty: 10 0RF naproxen [Naprosyn] 500 mg tablet 500 mg PO BID PRN (Reason: pain) Qty: 20 0RF cyclobenzaprine 10 mg tablet 10 mg PO BID PRN (Reason: muscle spasm) Qty: 10 0RF oxycodone-acetaminophen [Percocet] 5-325 mg tablet 1 tab PO Q6H PRN (Reason: pain) 3 Days Qty: 10 0RF oxycodone-acetaminophen [Endocet] 5-325 mg tablet 1 tab PO Q6H PRN (Reason: pain) 3 Days Qty: 12 0RF ondansetron 4 mg tablet,disintegrating 4 mg PO Q8H PRN PRN (Reason: Nausea) Qty: 14 0RF omeprazole 40 mg capsule,delayed release(DR/EC) 40 mg PO DAILY Qty: 30 0RF sucralfate [Carafate] 100 mg/mL suspension 10 ml PO BID PRN (Reason: EPIGASTRIC PAIN) Qty: 400 0RF Primary Care Provider: Terrence Lombardi Referrals: Terrence Lombardi MD [Primary Care Provider] - 1-2 Weeks Disposition Disposition: Home, Self Care
[2022-10-19 13:20] VITALS: BP 148/87; PULSE 88; RESP 16; O2SAT 99
== END 2022-10-19 13:21 | disposition home or self-care (01) ==
PROVIDERS: Emergency Provider Emergency Medicine; PCP Family Medicine; Visit Provider Emergency Medicine
DX: R10.9 Unspecified abdominal pain (principal); Z68.41 Body mass index [BMI] 40.0-44.9, adult; R19.7 Diarrhea, unspecified; E66.9 Obesity, unspecified; Z90.49 Acquired absence of other specified parts of digestive tract; E28.2 Polycystic ovarian syndrome; F41.9 Anxiety disorder, unspecified
CPT/HCPCS: 80076; 81001; 83690; 85025; 99283; A4216

== ENCOUNTER 2023-04-18 18:03 | Emergency (ER) | payer BC, SELFPAY ==
[2023-04-18 18:04] VITALS: BP 126/92; PULSE 118; RESP 18; TEMP 36.1; O2SAT 100; BMI 33.8
[2023-04-18 18:44] VITALS: O2SAT 99
[2023-04-18 19:06] VITALS: O2SAT 99
--- NOTE | 2023-04-18 19:06 | ED.VIS.DYS ---
HPI History of Present Illness Chief Complaint: Shortness of Breath Narrative Narrative: 38-year-old female presenting for evaluation. She states that on Sunday she started to get a headache and then developed a sore and itchy throat. She states that distended into her chest. She feels like her throat itches. Patient describes her chest is achy. She describes her body is achy. She has not had a fever. She states that she recently had travel to [place] in a car. She is on control. She denies any leg pain or swelling. She states she spent 3 days in the car driving. She does not have any sharp or pleuritic pain. Patient states she went to urgent care where they told her she can come to the emergency room or they can let her check a D-dimer and the D-dimer was elevated. Patient was then referred to the emergency room. She states she was tested for strep, COVID and these were negative. [facility] Medical History Anxiety Back pain IBS (irritable bowel syndrome) Polycystic bilateral ovaries Allergy/AdvReac Type Severity Reaction Status Date / Time chlorpromazine AdvReac Other Verified 04/18/23 18:07 [From Thorazine] Surgical History History of cholecystectomy Social History household members: family and children Smoking Status: Never smoker substance use type: does not use ROS ROS ED Constitutional Constitutional ED: Denies chills Eyes Eyes: Denies blurry vision or change in vision ENT ENT ED: Reports sore throat; Denies rhinorrhea Cardiovascular Cardiovascular: Reports chest pain; Denies palpitations or racing heartbeat Respiratory/Chest Respiratory/Chest: Reports dyspnea; Denies cough Gastrointestinal Gastrointestinal: Denies abdominal pain, nausea or vomiting Genitourinary Genitourinary ED: Denies dysuria or hematuria Musculoskeletal Musculoskeletal: Reports myalgias; Denies arthralgias Integumentary Denies abscess or Abrasions Neurologic Neurologic: Reports headache(s); Denies paresthesias or weakness EXAM Physical Exam Const Vital Signs: 04/18/23 18:04 04/18/23 18:44 04/18/23 18:44 Temperature 97 F L Temperature Source Temporal Pulse Rate 118 H Respiratory Rate 18 Respiratory Effort Short of Breath Respiratory Depth Normal Respiratory Pattern Normal Blood Pressure 126/92 H Blood Pressure Mean 103 Pulse Ox 100 99 Oxygen Delivery Method Room Air Room Air Room Air 04/18/23 19:06 04/18/23 20:27 04/18/23 20:45 Temperature 100.0 F H Temperature Source Temporal Pulse Rate 98 Respiratory Rate 16 Respiratory Effort Respiratory Depth Respiratory Pattern Blood Pressure 114/67 Blood Pressure Mean Pulse Ox 99 97 Oxygen Delivery Method Room Air MDM MDM MDM Narrative Medical decision making narrative: Patient presenting with headache, sore throat/itchy throat, chest pain. She admits to recent travel of the [place] and she is on control. Urgent care did a D-dimer which was 0.53. Patient has no cardiac history. Low suspicion for ACS but is in the differential. Also his COVID, influenza, viral syndrome, pneumonia, gastritis, GERD, PE. CBC will be obtained to assess white blood cell count, hemoglobin, platelets. BMP to assess renal function and electrolytes. I did send arrival respiratory panel his I feel this is most likely viral. Patient given Toradol and a Cepacol lozenge for her throat. High-sensitivity troponin and EKG will be obtained to assess for ischemia. Patient states she had a chest x-ray today but I do not see any evidence of a chest x-ray. I did look on [employer] and I do not see evidence of an x-ray there. Patient was able to pull this up on her phone and it was negative. CBC and BMP unremarkable with exception of potassium 3.4. High-sensitivity troponin less than 3. CTA of the chest negative for PE, dissection, pneumonia or other acute findings. Patient counseled on findings. Discussed return precautions at length. I do believe she likely has something viral. She has a respiratory panel pending which she can follow-up logging into [facility]. Impression: 1. Chest pain?noncardiac 2. Viral syndrome Lab Data Attestation: I reviewed the patient's lab results. Labs: Laboratory Results - last 24 hr 04/18/23 18:50 WBC 9.2 RBC 4.71 Hgb 13.8 Hct 42.4 MCV 90.0 MCH 29.3 MCHC 32.5 RDW Std Deviation 41.5 RDW Coeff of Ning 12.6 Plt Count 370 MPV 9.6 Immature Gran % (Auto) 0.500 Neut % (Auto) 50.2 Lymph % (Auto) 37.9 [place] % (Auto) 9.7 Eos % (Auto) 1.0 Baso % (Auto) 0.7 Absolute Neuts (auto) 4.6 Absolute Lymphs (auto) 3.48 Nucleated RBC % 0 Sodium 140 Potassium 3.4 L Chloride 106 Carbon Dioxide 28.0 Anion Gap 6 BUN 16 Creatinine 0.77 Estim Creat Clear Calc 79.89 Est GFR (MDRD) Af Amer 109 Est GFR (MDRD) Non-Af 90 BUN/Creatinine Ratio 20.9 H Glucose 86 Calcium 9.3 Troponin I High Sens < 3 L Radiography Diagnostic Testing: Clinical Impression(s) from Imaging Studies Chest CTA 04/18/23 19:53 IMPRESSION: No evidence of pulmonary embolism or acute airspace disease. No specific finding for patient''s pain. Electronically Signed: Thom Duke MD at 20:31 EDT , Discharge Plan Triage Chief Complaint: Shortness of Breath ED Provider: Zach Adams Dx/Rx/DC Orders Instructions: ED Chest Pain, Uncertain Cause, ED Viral Syndrome (Adult) Primary Care Provider: Terrence Lombardi Referrals: Terrence Lombardi MD [Primary Care Provider] - Disposition Disposition: Home, Self Care Discharge Date/Time: 04/18/23 20:49
[2023-04-18 19:34] LABS: Anion Gap 6 (5-15); BUN 16 mg/dL (7-18); BUN/Creat Ratio 20.9 RATIO (10-20); Calcium,Total 9.3 mg/dL (8.5-10.1); Chloride 106 mmol/L (98-107); Creatinine, Serum 0.77 mg/dL (0.55-1.02); EST Glomerular Filtration Rate 90 mL/min (>60); Est Glom Filt Rate - Afr Amer 109 mL/min (>60); Estimated Creatinine Clearance 79.89 ml/min; Glucose 86 mg/dL (74-106); Potassium 3.4 mmol/L (3.5-5.1); Sodium Level 140 mmol/L (136-145); Troponin-I HS < 3 pg/mL (3.0-54.0)
[2023-04-18 19:43] LABS: Absolute Lymphocyte Count 3.48 X10^3/uL (0.83-4.51); Absolute Neutrophil Count 4.6 X10^3/uL (2.0-7.7); Basophil# 0.06 X10^3/uL; Basophil% 0.7 % (0-1); Eosinophil# 0.09 X10^3/uL; Hematocrit 42.4 % (37-47); Hemoglobin 13.8 g/dL (12.0-15.0); Lymphocyte # 3.48 X10^3/ul (0.83-4.51); Lymphocyte % 37.9 % (19-41); Mean Corp Hgb Conc 32.5 g/dL (32-36); Mean Corpuscular Hgb 29.3 pg (27.0-32.0); Mean Platelet Vol. 9.6 fl (6.2-12.0); Monocyte# 0.89 X10^3/uL; Monocyte% 9.7 % (0-10); NRBC Flagged by Analyzer 0 % (0-5); Neutrophil % 50.2 % (47-70); Platelet Count 370 K/mm3 (150-450); RBC Distribution Width CV 12.6 % (11.6-14.6); RBC Distribution Width SD 41.5 fl (35.1-43.9); Red Blood Count 4.71 M/mm3 (4.2-5.4); White Blood Count 9.2 K/mm3 (4.4-11.0)
--- NOTE | 2023-04-18 19:53 | CT_ITS ---
STUDY: CTA CHEST REASON FOR EXAM: Female, 38 years old. chest pain RADIATION DOSAGE (If Supplied By Facility): CTDIvol = ( 12.13 ) mGy, DLP = ( 409.98 ) mGycm TECHNIQUE: The examination was performed with the intravenous administration of IV 100mL Isovue-370. Post-processing of the angiographic images was performed, with multiplanar reformation and 3D reconstruction. Individualized dose optimization techniques were used for this CT. COMPARISON: None. FINDINGS: Normal enhancement of the bilateral pulmonary arteries. There is no demonstrated pulmonary embolism. No main pulmonary arterial enlargement. No aortic dissection or aneurysmal dilatation. Normal heart and pericardium. Normal mediastinum. Normal hilar regions. Normal visualized trachea and bronchi. The lungs are well expanded. No airspace consolidation, effusion, and pneumothorax. Mild dependent atelectasis. No acute osseous finding Normal visualized upper abdomen. CT/CTA Chest W/WO Contrast IMPRESSION: No evidence of pulmonary embolism or acute airspace disease. No specific finding for patient''s pain. Electronically Signed: Thom Duke MD at 20:31 EDT ,
[2023-04-18] MEDS: Ketorolac 15 MG/ML Vial IV (19:58)
[2023-04-18 20:27] VITALS: TEMP 37.8
[2023-04-18 20:45] VITALS: BP 114/67; PULSE 98; RESP 16; O2SAT 97
== END 2023-04-18 20:49 | disposition home or self-care (01) ==
PROVIDERS: Emergency Provider Student in an Organized Health Care Education/Training Program; PCP Family Medicine; Visit Provider Student in an Organized Health Care Education/Training Program
DX: B34.9 Viral infection, unspecified (principal); R07.9 Chest pain, unspecified; Z79.3 Long term (current) use of hormonal contraceptives; Z90.49 Acquired absence of other specified parts of digestive tract
CPT/HCPCS: 71275; 80048; 84484; 85025; 87633; 93005; 96374; 99283; Q9967; A4216

== ENCOUNTER → 2023-04-18 | Outpatient (CLI) | payer BC, SELFPAY ==
[2023-04-18 16:39] LABS: D-Dimer Quantitative (DVT/PE) 0.58 FEU/ug/m (0.27-0.49)
== END | disposition home or self-care (01) ==
LOC: LABSPEC 16:05
PROVIDERS: PCP Family Medicine; Referring Provider Physician Assistant; Visit Provider Physician Assistant
DX: R07.81 Pleurodynia (principal)
CPT/HCPCS: 85379

== ENCOUNTER 2024-07-02 15:45 | Emergency (ER) | payer BC, SELFPAY ==
[2024-07-02 15:45] VITALS: BP 141/100; PULSE 108; RESP 16; TEMP 36.6; O2SAT 98; BMI 33.1
[2024-07-02] MEDS: Ondansetron 4 MG/2 ML Vial IV (16:39)
[2024-07-02] MEDS: Morphine 4 MG/ML Syringe IV (16:39)
[2024-07-02 17:05] LABS: Absolute Lymphocyte Count 3.31 X10^3/uL (0.83-4.51); Absolute Neutrophil Count 4.7 X10^3/uL (2.0-7.7); Basophil# 0.05 X10^3/uL; Basophil% 0.6 % (0-1); Eosinophils% 1.1 % (0-5); Hematocrit 39.7 % (37-47); Hemoglobin 13.1 g/dL (12.0-15.0); Lymphocyte # 3.31 X10^3/ul (0.83-4.51); Lymphocyte % 36.9 % (19-41); Mean Corpuscular Hgb 29.3 pg (27.0-32.0); Mean Corpuscular Volume 88.8 fL (81-99); Mean Platelet Vol. 9.5 fl (6.2-12.0); Monocyte# 0.76 X10^3/uL; Monocyte% 8.5 % (0-10); NRBC Flagged by Analyzer 0 % (0-5); Neutrophil # 4.69 X10^3/uL (2.7-7.7); Neutrophil % 52.3 % (47-70); Platelet Count 330 K/mm3 (150-450); RBC Distribution Width CV 12.5 % (11.6-14.6); RBC Distribution Width SD 40.8 fl (35.1-43.9); Red Blood Count 4.47 M/mm3 (4.2-5.4)
[2024-07-02 17:17] LABS: ALB/GLOB Ratio 1.1 RATIO (0.9-2.4); AST(SGOT) 19 U/L (15-37); Alanine Aminotransfer ALT/SGPT 29 U/L (13-56); Albumin, Serum 3.9 g/dL (3.2-5.0); Alkaline Phosphatase 63 U/L (45-117); Anion Gap 5 (5-15); BUN 11 mg/dL (7-18); BUN/Creat Ratio 19.2 RATIO (10-20); Calcium,Total 9.3 mg/dL (8.5-10.1); Chloride 106 mmol/L (98-107); Creatinine, Serum 0.57 mg/dL (0.55-1.02); EST Glomerular Filtration Rate 126 mL/min (>60); Est Glom Filt Rate - Afr Amer 153 mL/min (>60); Globulin 3.5 g/dL (2.2-4.2); Glucose 91 mg/dL (74-106); Lipase 22 U/L (13-75); Potassium 3.4 mmol/L (3.5-5.1); Protein, Total 7.4 g/dL (6.4-8.2); Sodium Level 138 mmol/L (136-145)
[2024-07-02 17:28] LABS: Lactic Acid 0.8 mmol/L (0.4-1.9)
[2024-07-02 17:45] VITALS: BP 121/81; PULSE 88; RESP 18; O2SAT 98
[2024-07-02 17:49] LABS: Internal QC Validated? YES +Cl - CLEAR BKGD; Pregnancy, Serum, hCG Quali. NEGATIVE Negative
[2024-07-02 18:16] LABS: Bacteria 0 SEEN /hpf (None Seen); Mucous, Urine 0 SEEN /hpf (<or=2+); Red Blood Cells-Urine 0 SEEN /hpf (0-5); Squamous Epithelial Cells - UA 0 SEEN /hpf (5-10); White Blood Cells 0 SEEN /hpf (0-5)
[2024-07-02 18:54] LABS: Color, Urine Yellow (Yellow); Glucose, Dipstick Normal (Normal); Ketone-Dipstick Negative (Negative); Leukocyte Esterase-Dipstick Negative /ul (Negative); Nitrite-Dipstick Negative (Negative); Occult Blood-Urine Negative /ul (Negative); Protein-Dipstick Negative (Negative); Urine Bilirubin Dipstick Negative (Negative); Urine Clarity Clear (Clear); Urine Urobilinogen Normal (Normal)
[2024-07-02 19:00] VITALS: PULSE 85; RESP 18; O2SAT 98
== END 2024-07-02 20:14 | disposition home or self-care (01) ==
PROVIDERS: Emergency Provider Surgery; PCP Family Medicine; Visit Provider Surgery
DX: K59.00 Constipation, unspecified (principal); R10.9 Unspecified abdominal pain; Z90.49 Acquired absence of other specified parts of digestive tract; E28.2 Polycystic ovarian syndrome; K62.89 Other specified diseases of anus and rectum; K76.0 Fatty (change of) liver, not elsewhere classified
CPT/HCPCS: 74177; 80053; 81001; 82274; 83605; 83690; 84703; 85025; 96374; 96375; 99283; Q9967; A4216; J2405

== ENCOUNTER → 2024-07-08 | Outpatient (CLI) | payer BC, SELFPAY ==
[2024-07-08 12:04] LABS: Absolute Lymphocyte Count 3.66 X10^3/uL (0.83-4.51); Basophil# 0.06 X10^3/uL; Basophil% 0.6 % (0-1); Eosinophil# 0.12 X10^3/uL; Eosinophils% 1.2 % (0-5); Hematocrit 41.4 % (37-47); Hemoglobin 13.3 g/dL (12.0-15.0); Lymphocyte # 3.66 X10^3/ul (0.83-4.51); Lymphocyte % 37.7 % (19-41); Mean Corp Hgb Conc 32.1 g/dL (32-36); Mean Corpuscular Volume 90.2 fL (81-99); Monocyte# 0.85 X10^3/uL; Monocyte% 8.8 % (0-10); NRBC Flagged by Analyzer 0 % (0-5); Neutrophil # 4.97 X10^3/uL (2.7-7.7); Neutrophil % 51.2 % (47-70); Platelet Count 345 K/mm3 (150-450); RBC Distribution Width CV 12.8 % (11.6-14.6); RBC Distribution Width SD 41.9 fl (35.1-43.9); Red Blood Count 4.59 M/mm3 (4.2-5.4); White Blood Count 9.7 K/mm3 (4.4-11.0)
[2024-07-08 15:35] LABS: Hepatitis B Surface Antibody Non-Reactive; Hepatitis B Surface Antigen Non-Reactive (Nonreactive); Hepatitis C Antibody Non-Reactive (Nonreactive)
[2024-07-09 05:08] LABS: Hepatitis A AB, Total Negative (Negative); Hepatitis B Core Ab Total Negative (Negative)
== END | disposition home or self-care (01) ==
LOC: LAB 11:49
PROVIDERS: PCP Family Medicine; Referring Provider Nurse Practitioner Acute Care; Visit Provider Nurse Practitioner Acute Care
DX: K76.0 Fatty (change of) liver, not elsewhere classified (principal); K62.5 Hemorrhage of anus and rectum; K62.89 Other specified diseases of anus and rectum; R10.30 Lower abdominal pain, unspecified; R10.13 Epigastric pain; K59.00 Constipation, unspecified
CPT/HCPCS: 36415; 85025; 86704; 86706; 86708; 86803; 87340

== ENCOUNTER → 2024-07-21 | Outpatient (CLI) | payer BC, SELFPAY ==
--- NOTE | 2024-07-21 09:04 | US_ITS ---
STUDY: ABDOMINAL ULTRASOUND - RIGHT UPPER QUADRANT; ELASTOGRAPHY REASON FOR VISIT: Female, 39 years old. NAFLD TECHNIQUE: Ultrasound evaluation of the right upper quadrant was performed with real-time and static valerio-scale imaging. Point quantification shear wave elastography was performed ([employer]). TECHNICAL QUALITY: Adequate. COMPARISON: None. FINDINGS: Liver: The liver is enlarged and measures 18.6 cm. There is increased echogenicity consistent with fatty infiltration. The bile ducts are within normal limits. There is hepatic color flow. The direction of portal flow is hepatopetal. There is no demonstrated mass lesion. Median liver stiffness measured 6.7 kPa. Gallbladder: The patient is status post cholecystectomy. Common Bile Duct (C.B.D.): The common bile duct measures 5 mm. Pancreas: There is normal echogenicity of the visualized pancreas. There is no demonstrated pancreatic mass or cyst. Right Kidney: Normal size of the right kidney. The right kidney measures 12.1 cm x 6.2 cm x 5.3 cm. Normal renal cortex. The right cortex measures 1.6 cm. There is no demonstrated renal mass or cyst. There is no right hydronephrosis. US/ABD Limited w/ Elastography IMPRESSION: 1. Liver stiffness measures 6.7 kPa compatible with F2-F3 (Mild to moderate liver fibrosis) Metavir score. Electronically Signed: Jim White MD at 10:57 EST ,
== END | disposition home or self-care (01) ==
LOC: US 09:02
PROVIDERS: PCP Family Medicine; Referring Provider Nurse Practitioner Acute Care; Visit Provider Nurse Practitioner Acute Care
DX: K76.0 Fatty (change of) liver, not elsewhere classified (principal); K62.5 Hemorrhage of anus and rectum; K62.89 Other specified diseases of anus and rectum; R10.30 Lower abdominal pain, unspecified; R10.13 Epigastric pain; K59.00 Constipation, unspecified
CPT/HCPCS: 76705; 76981

== ENCOUNTER 2024-08-26 05:38 | Day surgery (SDC) | payer BC, SELFPAY ==
--- NOTE | 2024-08-21 16:13 | PAT.ANE_ITS ---
Pre-Assessment Diagnosis/Proposed Procedure Planned Operative Procedure(s): COLONOSCOPY/EGD Anesthesia History Anesthesia History - vba programmer: Anesthesia History - vba programmer Hx Hospitalization No 08/21/24 15:55 Any Problems With Anesthesia No 08/21/24 15:55 Cholinesterase deficiency No 08/21/24 15:55 You/Your Family Experience No 08/21/24 15:55 fever (hyperthermia) with Relationship Recent Exposure to Contagious No 07/05/17 11:01 Disease Does patient have nerve No 08/21/24 15:55 stimulator Patient instructed to have device shut off --Does patient have Pacemaker or ICD? When Was Last Pacemaker Check QUESTION #4 FULL TEXT: You/Your Family Experience fever (hyperthermia) with Anesthesia Last Oral Intake Last Oral intake: Last Oral Intake NPO since Meds taken in AM with sips of water? Meds patient instructed to take am of surgery PONV PONV - vba programmer: PONV - vba programmer Female Yes 08/21/24 15:55 HX of Motion Sickness Yes 08/21/24 15:55 HX of N/V After Surgery No 08/21/24 15:55 Non-Smoker Yes 08/21/24 15:55 Duration of Surgery greater No 08/21/24 15:55 than 60 minutes Number of Risk Factors 3 08/21/24 15:55 PONV Score Moderate Risk 08/21/24 15:55 Height & Weight Height & Weight: Anesthesia: Height & Weight Height 5 ft 2 in 07/02/24 15:45 Respiratory Assessment Respiratory Assessment - vba programmer: Respiratory Tract Infection Hx - vba programmer Hx Respiratory Tract Infection No 08/21/24 15:55 STOP Sleep Apnea STOP Sleep Apnea - vba programmer: STOP Sleep Apnea - vba programmer Hx Hypertension No 08/21/24 15:55 Hx Sleep Apnea No 08/21/24 15:55 CPAP BIPAP Do you snore loudly (louder No 08/21/24 15:55 than talking or can be heard Do you often feel tired/ No 08/21/24 15:55 fatigued/ sleepy during daytime? Has anyone observed you stop No 08/21/24 15:55 breathing during sleep? STOP Results Negative 08/21/24 15:55 QUESTION #5 FULL TEXT : Do you snore loudly (louder than talking or can be heard through closed doors)? 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 Specify any problems Hx of Preganancy in last 3 No 08/21/24 15:55 Months Nurse Filling Out Transfusion VCHRISTIN 08/21/24 15:55 & Questions: Date: 08/21/24 08/21/24 15:55 Time: 15:56 08/21/24 15:55 Patient unable to answer at this time (ie. confused, unrespo /Reproduction History /Reproductive History - vba programmer: /Reproductive Hx- vba programmer Hx Now No 08/21/24 15:55 Gestational Age (in weeks): EDC: Hx Hx Para Hx Section SAB No 08/21/24 15:55 [facility] Medical History (Updated 08/21/24 @ 15:58 by Negra Asher) Liver fibrosis Fatty liver Wears glasses Alcohol use History of steroid therapy Difficulty swallowing History of ulceration Non-smoker Asthma History of pain when walking History of irregular heartbeat Polycystic bilateral ovaries IBS (irritable bowel syndrome) Back pain Anxiety Home Medications ?Medication ?Instructions ?Recorded ?Last Taken ?Type sennosides 8.6 mg-docusate sodium 1 tab-cap PO BID 7 days #14 tabs 07/02/24 Unknown Rx 50 mg tablet (Senna with Docusate Sodium) Diltiazem 2% / Lidocaine 5% #1 ea 07/08/24 Unknown Rx ointment (compound) (Diltiazem 2%/Lidocaine 5% ointment (compound)) cetirizine 10 mg tablet (Zyrtec) 10 mg PO QDAY PRN allergy symptoms 07/08/24 Unknown History fluticasone furoate 27.5 2 spray intranasal QDAY PRN 07/08/24 Unknown History mcg/actuation nasal allergy symptoms spray,suspension (Flonase Sensimist) linaclotide 145 mcg capsule 145 mcg PO .COMPLEX constipation 07/08/24 Unknown Rx (Linzess) #90 caps meclizine 25 mg tablet 25 mg PO QDAY PRN dizziness 07/08/24 Unknown History polyethylene glycol 3350 17 4 g PO QDAY PRN STOOL SOFTENER 07/08/24 Unknown History gram/dose oral powder (Miralax) vibegron 75 mg tablet (Gemtesa) 75 mg PO QDAY 07/08/24 Unknown History albuterol sulfate 90 mcg/actuation 2 puff inhalation Q4H PRN PRN 08/21/24 Unknown History aerosol inhaler wheezing amitriptyline 50 mg tablet 50 mg PO QHS 08/21/24 Unknown History hydrocortisone acetate 25 mg 25 mg [place] QHS PRN rectal pain and 08/21/24 Unknown History rectal suppository (Anusol-HC) hemorrhoids Allergy/AdvReac Type Severity Reaction Status Date / Time No Known Allergies Allergy Verified 08/21/24 15:40 Surgical History (Updated 08/21/24 @ 16:00 by Negra Asher) History of midurethral sling procedure Hx of unilateral salpingectomy Hx of sinus surgery Hx of tubal ligation Hx of tonsillectomy History of 2 sections History of cholecystectomy Social History household members: family and children Smoking Status: Never smoker substance use type: does not use Audit: Pertinent Findings Pertinent Findings EKG Perinent findings: April 18, 2023. Sinus tachycardia 102 bpm. This is improved from EKG of October 18, 2022 when the tachycardia was 132 bpm. Recommendation Anesthesia Recommendation Anesthesia recommendation: OPTIMIZED for anesthesia
[2024-08-26] VITALS (7 sets, daily range): BP systolic 88–108; BP diastolic 59–69; PULSE 74–89; RESP 16–18; TEMP 36.1–36.7; O2SAT 96–98; BMI 33.5
[2024-08-26 05:57] LABS: Internal QC Validated? YES +Cl - CLEAR BKGD; Pregnancy, Urine Negative Negative
--- NOTE | 2024-08-26 06:30 | COLBX_PTH ---
PATIENT: ОЛЬГА DALEY LOC: EN U#:[id number] AGE/SX: 39/F ROOM: RE08/26/[address]: Dr. Anthony Marcos DO : 1985 BED: DIS: 08/26/2024 SPEC #: [id number] RECD: 08/26/24 10:57 STATUS: HEIDE REDebbie #: [id number] ANGELA: 08/26/24 06:[address]: Anthony Marcos DEPT: SURGICAL PATHOLOGY RECD BY: Iona Davis ENTERED: 08/26/24 11:38 SP TYPE: COLON BX OTHR DR: Dr. Terrence Lombardi MD Tissues: A - Gastric mucous membrane B - Esophagus, NOS C - Ileum, NOS D - COLON BIOPSY Procedures: Special Stain Group I Surgery Specimen Level IV Alcian Blue/PAS (control) HEADER OPERATION: Colonoscopy, EGD biopsy PRE-OP DIAGNOSIS: Epigastric pain, lower abdominal pain, constipation, rectal pain, rectal bleeding, metabolic dysfunction-associated stereotactic liver disease TISSUE SUBMITTED: A- Gastric antrum biopsy, B- Distal esophagus biopsy, C- Terminal ileum biopsy,D- Random colonic biopsy MICROSCOPIC DIAGNOSIS A. Gastric antrum, biopsy: Mild gastritis. See microscopic description and comment. B. Distal esophagus, biopsy: Fragments of gastric mucosa with chronic inflammation. Intestinal metaplasia (goblet cell metaplasia) is not identified. See comment. C. Terminal ileum, biopsy: Fragments of small intestinal mucosa, no pathologic diagnosis. D. Colon, random biopsy: Fragments of colonic mucosa, no pathologic diagnosis. . 08/28/2024 COMMENT A. The results of immunohistochemistry for Helicobacter pylori will be reported separately ([id number]). B. Alcian blue/PAS stain with matched control is used in the evaluation of the specimen. MICROSCOPIC DESCRIPTION Slides are reviewed. The specimen shows fragments of gastric mucosa with chronic inflammatory cell infiltrates in the lamina propria consisting of lymphocytes and plasma cells, consistent with mild chronic gastritis. GROSS DESCRIPTION A. Received in fixative is one container labeled with the patient's name and designated Gastric antrum biopsy. The specimen consists of two irregular fragments of light lauren soft tissue that in aggregate measure 0.5 x 0.5 x 0.2 cm. The specimen is totally submitted in one cassette. B. Received in fixative is one container labeled with the patient's name and designated Distal esophagus biopsy. The specimen consists of multiple irregular fragments of light lauren soft tissue that in aggregate measure 1.0 x 0.2 x 0.1 cm. The specimen is totally submitted in one cassette. C. Received in fixative is one container labeled with the patient's name and designated Terminal ileum biopsy. The specimen consists of multiple irregular fragments of light lauren soft tissue that in aggregate measure 0.5 x 0.2 x 0.1 cm. The specimen is totally submitted in one cassette. D. Received in fixative is one container labeled with the patient's name and designated Random colonic biopsy. The specimen consists of multiple irregular fragments of light lauren soft tissue that in aggregate measure 2.0 x 0.5 x 0.1 cm. The specimen is totally submitted in one cassette. 08/26/2024 TC:3 CPT:20451v9,58600
--- NOTE | 2024-08-26 06:30 | PRE.ANES_ITS ---
ASA Classification* ASA Classification ASA Classification: 2 Assessment & Plan Anesthesia* Anesthesia Assessment Anesthesia Assessment: Discussed sedation and/or anesthesia options, risks, benefits, and alternatives with patient/parents/legal guardian/POA. Questions invited. The patient/parents/legal guardian/POA seems to understand and agrees to proceed with anesthesia plan. Reviewed the physical assessment, medical history, allergy history and patient home medications list prior to surgery/procedure/anesthetic and documented any changes. Performed airway and anesthesia risk assessments. Anesthesia Type Anesthesia Type: MAC Anesthesia Focused Assessment* Temperature: 98.0 F Pulse Rate: 89 Blood Pressure: 108/66 Respiratory Rate: 18 Pulse Ox: 98 Airway Assessment Mouth opens: >3 cm Mallampati Score: II Focused Labs Anesthesia Preop lab: CBC WBC 9.7 K/mm3 (4.4-11.0) 07/08/24 11:51 RBC 4.59 M/mm3 (4.2-5.4) 07/08/24 11:51 Hgb 13.3 g/dL (12.0-15.0) 07/08/24 11:51 Hct 41.4 % (37-47) 07/08/24 11:51 Plt Count 345 K/mm3 (150-450) 07/08/24 11:51 CHEMISTRY Potassium 3.4 mmol/L (3.5-5.1) L 07/02/24 16:45 Sodium 138 mmol/L (136-145) 07/02/24 16:45 BUN 11 mg/dL (7-18) 07/02/24 16:45 Creatinine 0.57 mg/dL (0.55-1.02) 07/02/24 16:45 Glucose 91 mg/dL (74-106) 07/02/24 16:45 COAG Urine Test Negative Negative 08/26/24 05:45 Pre-Assessment Diagnosis/Proposed Procedure Planned Operative Procedure(s): COLONOSCOPY/EGD Anesthesia History Anesthesia History - lead c developer: Anesthesia History - lead c developer Hx Hospitalization No 08/21/24 15:55 Any Problems With Anesthesia No 08/21/24 15:55 Cholinesterase deficiency No 08/21/24 15:55 You/Your Family Experience No 08/21/24 15:55 fever (hyperthermia) with Relationship Recent Exposure to Contagious No 08/26/24 05:57 Disease Does patient have nerve No 08/21/24 15:55 stimulator Patient instructed to have device shut off --Does patient have Pacemaker No 08/26/24 05:57 or ICD? When Was Last Pacemaker Check QUESTION #4 FULL TEXT: You/Your Family Experience fever (hyperthermia) with Anesthesia Last Oral Intake Last Oral intake: Last Oral Intake NPO since 23:00 08/26/24 05:57 Meds taken in AM with sips of water? Meds patient instructed to take am of surgery PONV PONV - lead c developer: PONV - lead c developer Female Yes 08/21/24 15:55 HX of Motion Sickness Yes 08/21/24 15:55 HX of N/V After Surgery No 08/21/24 15:55 Non-Smoker Yes 08/21/24 15:55 Duration of Surgery greater No 08/21/24 15:55 than 60 minutes Number of Risk Factors 3 08/21/24 15:55 PONV Score Moderate Risk 08/21/24 15:55 Height & Weight Height & Weight: Anesthesia: Height & Weight Height 5 ft 2 in 08/26/24 05:57 Weight: 83 kg 08/26/24 05:57 Body Mass Index (BMI) 33.5 08/26/24 05:57 Respiratory Assessment Respiratory Assessment - lead c developer: Respiratory Tract Infection Hx - lead c developer Hx Respiratory Tract Infection No 08/21/24 15:55 STOP Sleep Apnea STOP Sleep Apnea - lead c developer: STOP Sleep Apnea - lead c developer Hx Hypertension No 08/21/24 15:55 Hx Sleep Apnea No 08/21/24 15:55 CPAP BIPAP Do you snore loudly (louder No 08/21/24 15:55 than talking or can be heard Do you often feel tired/ No 08/21/24 15:55 fatigued/ sleepy during daytime? Has anyone observed you stop No 08/21/24 15:55 breathing during sleep? STOP Results Negative 08/21/24 15:55 QUESTION #5 FULL TEXT : Do you snore loudly (louder than talking or can be heard through closed doors)? 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 Specify any problems Hx of Preganancy in last 3 No 08/21/24 15:55 Months Nurse Filling Out Transfusion VCHRISTIN 08/21/24 15:55 & Questions: Date: 08/21/24 08/21/24 15:55 Time: 15:56 08/21/24 15:55 Patient unable to answer at this time (ie. confused, unrespo /Reproduction History /Reproductive History - lead c developer: /Reproductive Hx- lead c developer Hx Now No 08/21/24 15:55 Gestational Age (in weeks): EDC: Hx Hx Para Hx Section SAB No 08/21/24 15:55 PFSH Medical History Liver fibrosis Fatty liver Wears glasses Alcohol use History of steroid therapy Difficulty swallowing History of ulceration Non-smoker Asthma History of pain when walking History of irregular heartbeat Polycystic bilateral ovaries IBS (irritable bowel syndrome) Back pain Anxiety Home Medications ?Medication ?Instructions ?Recorded ?Last Taken ?Type sennosides 8.6 mg-docusate sodium 1 tab-cap PO BID 7 days #14 tabs 07/02/24 Unknown Rx 50 mg tablet (Senna with Docusate Sodium) Diltiazem 2% / Lidocaine 5% #1 ea 07/08/24 Unknown Rx ointment (compound) (Diltiazem 2%/Lidocaine 5% ointment (compound)) cetirizine 10 mg tablet (Zyrtec) 10 mg PO QDAY PRN allergy symptoms 07/08/24 Unknown History fluticasone furoate 27.5 2 spray intranasal QDAY PRN 07/08/24 08/24/24 History mcg/actuation nasal allergy symptoms spray,suspension (Flonase Sensimist) linaclotide 145 mcg capsule 145 mcg PO .COMPLEX constipation 07/08/24 08/25/24 Rx (Linzess) #90 caps meclizine 25 mg tablet 25 mg PO QDAY PRN dizziness 07/08/24 Unknown History polyethylene glycol 3350 17 4 g PO QDAY PRN STOOL SOFTENER 07/08/24 Unknown H istory gram/dose oral powder (Miralax) vibegron 75 mg tablet (Gemtesa) 75 mg PO QDAY 07/08/24 08/23/24 History albuterol sulfate 90 mcg/actuation 2 puff inhalation Q4H PRN PRN 08/21/24 Unknow n History aerosol inhaler wheezing amitriptyline 50 mg tablet 50 mg PO QHS 08/21/24 08/24/24 History hydrocortisone acetate 25 mg 25 mg [place] QHS PRN rectal pain and 08/21/24 Unknown History rectal suppository (Anusol-HC) hemorrhoids Allergy/AdvReac Type Severity Reaction Status Date / Time No Known Allergies Allergy Verified 08/26/24 05:55 Surgical History History of midurethral sling procedure Hx of unilateral salpingectomy Hx of sinus surgery Hx of tubal ligation Hx of tonsillectomy History of 2 sections History of cholecystectomy Social History household members: family and children Smoking Status: Never smoker substance use type: does not use Review of Systems (Anesthesia) ROS Narrative System reviewed and no additional complaints, except as documented.
--- NOTE | 2024-08-26 06:30 | IMM_PTH ---
PATIENT: ОЛЬГА DALEY LOC: EN U#:[id number] AGE/SX: 39/F ROOM: RE08/26/[address]: Dr. Anthony Marcos DO : 1985 BED: DIS: 08/26/2024 SPEC #: [id number] RECD: 08/26/24 11:23 STATUS: HEIDE REQ #: [id number] ANGELA: 08/26/24 06:[address]: Anthony Marcos DEPT: IMMUNOHISTOCHEMISTRY RECD BY: Darryl Koehler ENTERED: 08/26/24 11:23 SP TYPE: IMMUNO OTHR DR: Dr. Terrence Lombardi MD Tissues: A - Gastric mucous membrane Procedures: H Pylori (initial) PHYSICIAN & INSTITUTION [place] [id number] SPECIMEN INFORMATION: Tissue Source: A- Gastric antrum biopsy Clinical Info: Epigastric pain, lower abdominal pain, constipation, rectal pain, rectal bleeding, metabolic dysfunction associated stereotactic liver disease Specimen Number: [id number] CPT code: 89816 METHODOLOGY: Deparaffinized sections of prefer/formalin-fixed tissue or PAP/DQ stained slides are incubated with monoclonal/polyclonal antibodies/oligonucleotide probes. Localization is made via biotin free immunoperoxidase method. Appropriate controls are performed and reacted as expected. Results on target cell population are indicated in the following table: RESULTS: ANTIBODY / CLONE RESULT Block A H Pylori (polyclonal) negative These tests were developed and their performance characteristics determined by [facility]. They may not have been cleared or approved by the U.S. Food and Drug Administration. The FDA has determined that such clearance or approval is not necessary. The above immunohistochemical/dualISH markers are ordered and reviewed by the Pathologist. INTERPRETATION: A. Gastric antrum, biopsy: Negative for Helicobacter pylori organisms. SHILPA. 08/28/2024
--- NOTE | 2024-08-26 06:43 | PCM.HP.STD ---
HPI - General General Date of Admission: 08/26/24 Date of Service: 08/26/24 Chief Complaint: abdominal pain and diarrhea with lower gi bleeding HPI Narrative ОЛЬГА DALEY, is a 39 F who presents ОЛЬГА DALEY, is a 39 F who presents to the office today for 39y/o female presents for ER follow-up of abdominal and rectal pain. She was seen in ED on 07/02/2024. On 06/19/2024 she reports an episode of unprovoked rectal bleeding and has continued to have intermittent episodes of rectal bleeding and pain. She reports a remote history of perianal abscess with I&D. CT completed in ED was revealing for moderate stool burden and liver steatosis. CBC and transaminases were unremarkable. Stool was occult negative. She is continuing to experience severe rectal pain causing difficulty sitting down and daily BRBPR. Pain and bleeding are worse with a BM. She reports a yellow mucus drainage with fishy odor, this was not noted during rectal exam today. Additionally she complains of severe perineal pain and edema. She c/o tearing abdominal pain prior to a bowel movement. ABD exam today reveals moderate epigastric tenderness and lower abdominal tenderness. Additionally she complains of fecal incontinence, decreased rectal sensation, and pain with intercourse. She is agreeable to seeing Colorectal Surgeon at [facility], Dr. Gaby Benton. We have discussed the importance of medication compliance and increasing PO food and fluid intake. She underwent blader sling revision and cystoscopy March 2024. - She is not taking Gemtesa, Urogesic, Pyridium or estradiol as prescribed - reports she forgets I don't know what it is I don't remember to eat or drink - occasionally smokes marijuana - this helps her back pain and anxiety - remote history of perianal abscess (?2012) - now has a yellow thick mucus drainage - going on a while - reports this has a fishy odor - reports bowel issues her entire life - she reports last saw GI 3 years ago - c/o constant bloating, pressure, pain - alternating constipation and diarrhea - c/o a lot of mucus and yellow rectal seepage - c/o hemorrhoids - mucus in stools - fecal incontinence - decreased rectal sensation - c/o perineal edema and sharp pain/pressure x3 weeks - the rectal pain has been present for years - rectal bleeding now is every day - worse with BM, this is BRB, having bleeding in between BM, blood now is minimal compared to 06/19 episode - May episode of severe bleeding like I was hemorrhaging - she is having fecal incontinence - ongoing for a long time - difficulty sitting down due to pain - pain is sharp - worse with a BM - she was using hemorrhoid suppositories and reports these show no improvement - denies any abdominal pain but does endorse lower abdominal pressure - c/o sharp tearing pain in the abdomen before a BM - c/o very painful intercourse - this was an issue prior to bladder surgery but a lot worse post-op - c/o shooting vaginal pain into LLQ during intercourse - she reports Urgent care 1 week ago due to severe perineal/rectal pain and edema - who she reports sent her to ER - she states ER told her nothing is wrong with her rectum and that she is constipated - denies any known family h/o colon CA - denies any family h/o IBD - she has phentermine to take to weight loss - but reports she forgets to take it - reports taking phentermine causes increased frequency of stools - but still has RX from January 2024 - denies any weight loss - reports she can go days without eating or drinking - denies any pain with eating - denies N/V - denies HB - reports she does not feel hungry or thirsty - denies h/o eating disorder - reports she forgets to take Miralax daily because she is so busy - she has 4 kids - 2 have special needs - denies any fiber supplement - Colonoscopy & EGD - 6-7 years ago - per patient the colonoscopy maybe revealed polyps - She reports prior Sitz Marker study was normal - reports she was on a diet pill at that time was causing her to have rapid transit - H/O CCX 6-7 years ago - denies any heart or lung disease - denies any kidney disease MASLD FIB4 0.72 - occasional alcohol intake - she takes IBU on occasion - father was an alcoholic - denies any family h/o fatty liver disease [facility] Medical History Liver fibrosis Fatty liver Wears glasses Alcohol use History of steroid therapy Difficulty swallowing History of ulceration Non-smoker Asthma History of pain when walking History of irregular heartbeat Polycystic bilateral ovaries IBS (irritable bowel syndrome) Back pain Anxiety Home Medications ?Medication ?Instructions ?Recorded ?Last Taken ?Type sennosides 8.6 mg-docusate sodium 1 tab-cap PO BID 7 days #14 tabs 07/02/24 Unknown Rx 50 mg tablet (Senna with Docusate Sodium) Diltiazem 2% / Lidocaine 5% #1 ea 07/08/24 Unknown Rx ointment (compound) (Diltiazem 2%/Lidocaine 5% ointment (compound)) cetirizine 10 mg tablet (Zyrtec) 10 mg PO QDAY PRN allergy symptoms 07/08/24 Unknown History fluticasone furoate 27.5 2 spray intranasal QDAY PRN 07/08/24 08/24/24 History mcg/actuation nasal allergy symptoms spray,suspension (Flonase Sensimist) linaclotide 145 mcg capsule 145 mcg PO .COMPLEX constipation 07/08/24 08/25/24 Rx (Linzess) #90 caps meclizine 25 mg tablet 25 mg PO QDAY PRN dizziness 07/08/24 Unknown History polyethylene glycol 3350 17 4 g PO QDAY PRN STOOL SOFTENER 07/08/24 Unknown History gram/dose oral powder (Miralax) vibegron 75 mg tablet (Gemtesa) 75 mg PO QDAY 07/08/24 08/23/24 History albuterol sulfate 90 mcg/actuation 2 puff inhalation Q4H PRN PRN 08/21/24 Unknown History aerosol inhaler wheezing amitriptyline 50 mg tablet 50 mg PO QHS 08/21/24 08/24/24 History hydrocortisone acetate 25 mg 25 mg OR QHS PRN rectal pain and 08/21/24 Unknown History rectal suppository (Anusol-HC) hemorrhoids Allergy/AdvReac Type Severity Reaction Status Date / Time No Known Allergies Allergy Verified 08/26/24 05:55 Surgical History History of midurethral sling procedure Hx of unilateral salpingectomy Hx of sinus surgery Hx of tubal ligation Hx of tonsillectomy History of 2 sections History of cholecystectomy Social History household members: family and children Smoking Status: Never smoker substance use type: does not use ROS Constitutional Constitutional: Denies fatigue, fever(s), poor appetite, weight gain or weight loss Gastrointestinal Gastrointestinal: Denies belching, bloating, change in bowel habits, change in stool character, chewing difficulty, coffee ground emesis, constipation, cramping, diarrhea, dyspepsia, dysphagia, early satiety, excessive flatus, fecal incontinence, heartburn, hematemesis, hematochezia, hemorrhoids, loose stools, melena, nausea, odynophagia, rectal bleeding, tenesmus, vomiting or weight changes Vital Signs Vital Signs Vital Signs: 08/26/24 05:57 08/26/24 05:57 Temperature 98.0 F Temperature Source Temporal Pulse Rate 89 Respiratory Rate 18 Respiratory Pattern Normal Blood Pressure 108/66 Blood Pressure Mean 80 Blood Pressure Source Monitor Blood Pressure Position Semi-Fowlers Blood Pressure Location Left Arm Pulse Ox 98 Oxygen Delivery Method Room Air Weight Weight: 182 lb 15.739 oz Body Mass Index (BMI) 33.5 Physical Exam Const alert, oriented x3, no apparent distress and healthy appearing General Appearance: cooperative GI normal to inspection, nondistended, normoactive bowel sounds, soft to palpation, non-tender and non-distended Percussion: normal to percussion Rectal Exam: deferred Results Lab / Micro Data Labs: Laboratory Results - last 24 hr 08/26/24 05:45: Urine Test Negative Assessment & Plan Assessment/Plan (1) Metabolic dysfunction-associated steatotic liver disease (MASLD): (2) Rectal bleeding: (3) Rectal pain: (4) Lower abdominal pain: PLAN: Plan Assessment and Plan Assessment and Plan (1) Epigastric pain: Status: Acute (2) Lower abdominal pain: Status: Acute (3) Constipation: Status: Acute Qualifiers: Constipation type: chronic idiopathic constipation Qualified Code(s): K59.04 - Chronic idiopathic constipation (4) Rectal pain: Status: Acute (5) Rectal bleeding: Status: Acute (6) Metabolic dysfunction-associated steatotic liver disease (MASLD): Status: Acute Orders: Orders ABD Limited w/ Elastography Today K59.00 - Constipation, unspecified, K62.5 - Hemorrhage of anus and rectum, K62.89 - Other specified diseases of anus and rectum, K76.0 - Fatty (change of) liver, not elsewhere classified, R10.13 - Epigastric pain, R10.30 - Lower abdominal pain, unspecified Hepatitis A AB, Total Today K59.00 - Constipation, unspecified, K62.5 - Hemorrhage of anus and rectum, K62.89 - Other specified diseases of anus and rectum, K76.0 - Fatty (change of) liver, not elsewhere classified, R10.13 - Epigastric pain, R10.30 - Lower abdominal pain, unspecified Hepatitis B Core Ab Total Today K59.00 - Constipation, unspecified, K62.5 - Hemorrhage of anus and rectum, K62.89 - Other specified diseases of anus and rectum, K76.0 - Fatty (change of) liver, not elsewhere classified, R10.13 - Epigastric pain, R10.30 - Lower abdominal pain, unspecified Hepatitis B Surface Antibody Today K59.00 - Constipation, unspecified, K62.5 - Hemorrhage of anus and rectum, K62.89 - Other specified diseases of anus and rectum, K76.0 - Fatty (change of) liver, not elsewhere classified, R10.13 - Epigastric pain, R10.30 - Lower abdominal pain, unspecified Hepatitis B Surface Antigen Today K59.00 - Constipation, unspecified, K62.5 - Hemorrhage of anus and rectum, K62.89 - Other specified diseases of anus and rectum, K76.0 - Fatty (change of) liver, not elsewhere classified, R10.13 - Epigastric pain, R10.30 - Lower abdominal pain, unspecified Hepatitis C Antibody Today K59.00 - Constipation, unspecified, K62.5 - Hemorrhage of anus and rectum, K62.89 - Other specified diseases of anus and rectum, K76.0 - Fatty (change of) liver, not elsewhere classified, R10.13 - Epigastric pain, R10.30 - Lower abdominal pain, unspecified CBC W/Diff, Automated Today K62.5 - Hemorrhage of anus and rectum Referrals General Surgery K59.00 - Constipation, unspecified, K62.5 - Hemorrhage of anus and rectum, K62.89 - Other specified diseases of anus and rectum, K76.0 - Fatty (change of) liver, not elsewhere classified, R10.13 - Epigastric pain, R10.30 - Lower abdominal pain, unspecified Medications: New linaclotide (Linzess) 145 mcg orally once daily 30 minutes before breakfast; 90 caps 0RF constipation K59.00 - Constipation, unspecified Diltiazem 2% / Lidocaine 5% ointment (compound) (Diltiazem 2%/Lidocaine 5% ointment (compound)) As directed 1 ea 0RF rectal pain hydrocortisone acetate (Anusol-HC) 25 mg OR QHS 7 ea 0RF rectal pain and hemorrhoids MDD 1 Plan 39y/o female presents for ER follow-up of abdominal and rectal pain. She was seen in ED on 07/02/2024. On 06/19/2024 she reports an episode of unprovoked rectal bleeding and has continued to have intermittent episodes of rectal bleeding and pain. She reports a remote history of perianal abscess with I&D. CT completed in ED was revealing for moderate stool burden and liver steatosis. CBC and transaminases were unremarkable. Stool was occult negative. She is continuing to experience severe rectal pain causing difficulty sitting down and daily BRBPR. Pain and bleeding are worse with a BM. She reports a yellow mucus drainage with fishy odor, this was not noted during rectal exam today. Additionally she complains of severe perineal pain and edema. She c/o tearing abdominal pain prior to a bowel movement. ABD exam today reveals moderate epigastric tenderness and lower abdominal tenderness. Additionally she complains of fecal incontinence, decreased rectal sensation, and pain with intercourse. She is agreeable to seeing Colorectal Surgeon at [facility], Dr. Gaby Benton. We have discussed the importance of medication compliance and increasing PO food and fluid intake. She will schedule colonoscopy and EGD. While awaiting appt. with pelvic floor clinic she will use ANusol supp. x7 days and diltiazem/lidocaine topical compound PRN. In terms of liver steatosis noted on CT, I have scheduled her for a Fibroscan and recommend she complete labs. I recommend vaccination for HAV and HBV if Ab nul. Patient Instructions: Metamucil 2tsp once a day in 8 ounces of water after breakfast Increase water intake Recommend 2 Kiwi fruit daily or 2-3 prunes daily Colonoscopy & EGD with Dr. Marcos at [facility] Referral to Dr. Gaby Benton at [facility]/Colorectal Surgery Linzess samples 145mcg - take 1 capsule daily 30 minutes before breakfast Anusol suppositories sent to [facility] Diltiazem/Lidocaine compound sent to [facility] Set reminder on Herminia or phone to take daily medications Encouraged increased food and water intake Fibroscan - schedule at [facility] Labs - complete today at [facility] Follow-up in 4 months
--- NOTE | 2024-08-26 07:25 | OP.EGD_ITS ---
Patient Name: Johnathon Vizcaino Procedure Date: 08/26/2024 6:22 AM Date of : 1985 Age: 39 Procedure: Upper GI endoscopy Indications: Epigastric abdominal pain, Functional Dyspepsia, Indigestion, Failure to respond to medical treatment Providers: Anthony Marcos DO Referring MD: Terrence Lombardi Medicines: Monitored Anesthesia Care Patient Profile: This is a 39 year old female. Refer to note in patient chart for documentation of history and physical. Patient has symptoms of chronic abdominal cramping, chronic epigastric abdominal pain, chronic dyspepsia and chronic nausea. Complications: No immediate complications. Procedure: Pre-Anesthesia Assessment: - Prior to the procedure, a History and Physical was performed, and patient medications and allergies were reviewed. The patient is competent. The risks and benefits of the procedure and the sedation options and risks were discussed with the patient. All questions were answered and informed consent was obtained. Patient identification and proposed procedure were verified by the physician in the pre-procedure area. Mental Status Examination: alert and oriented. Airway Examination: normal oropharyngeal airway and neck mobility. Respiratory Examination: clear to auscultation. CV Examination: normal. Prophylactic Antibiotics: The patient does not require prophylactic antibiotics. Prior Anticoagulants: The patient has taken no anticoagulant or antiplatelet agents except for NSAID medication. ASA Grade Assessment: II - A patient with mild systemic disease. After reviewing the risks and benefits, the patient was deemed in satisfactory condition to undergo the procedure. The anesthesia plan was to use monitored anesthesia care (MAC). Immediately prior to administration of medications, the patient was re-assessed for adequacy to receive sedatives. The heart rate, respiratory rate, oxygen saturations, blood pressure, adequacy of pulmonary ventilation, and response to care were monitored throughout the procedure. The physical status of the patient was re-assessed after the procedure. After obtaining informed consent, the endoscope was passed under direct vision. Throughout the procedure, the patient's blood pressure, pulse, and oxygen saturations were monitored continuously. The Colonoscope was introduced through the mouth, and advanced to the second part of duodenum. The upper GI endoscopy was accomplished without difficulty. The patient tolerated the procedure well. Scope In: 6:57:50 AM Scope Out: 7:03:48 AM Total Procedure Duration Time 0 hours 5 minutes 58 seconds Findings: LA Grade A (one or more mucosal breaks less than 5 mm, not extending between tops of 2 mucosal folds) esophagitis with no bleeding was found 36 to 38 cm from the incisors. Biopsies were taken with a cold forceps for histology. Verification of patient identification for the specimen was done. Estimated blood loss was minimal. Bilious fluid was found in the gastric body. Patchy mildly erythematous mucosa without bleeding was found in the gastric body. Biopsies were taken with a cold forceps for histology. Verification of patient identification for the specimen was done. Estimated blood loss was minimal. Biopsies were taken with a cold forceps for Helicobacter pylori testing. Verification of patient identification for the specimen was done. Estimated blood loss was minimal. No gross lesions were noted in the second portion of the duodenum. Impression: - LA Grade A reflux esophagitis with no bleeding. Biopsied. - Bilious gastric fluid. - Erythematous mucosa in the gastric body. Biopsied. - No gross lesions in the second portion of the duodenum. Recommendation: - Discharge patient to home. - Resume previous diet. - Continue present medications. - Await pathology results. Procedure Code(s): --- Professional --- 81880, Esophagogastroduodenoscopy, flexible, transoral; with biopsy, single or multiple CPT copyright 2021 [employer]. All rights reserved. The codes documented in this report are preliminary and upon track repair worker review may be revised to meet current compliance requirements. Anthony Marcos DO 08/26/2024 7:24:15 AM This report has been signed electronically. Number of Addenda: 0 Note Initiated On: 08/26/2024 6:22 AM
--- NOTE | 2024-08-26 07:25 | OP.CCLET_ITS ---
08/26/2024 Terrence Lombardi [address] [place] [address] Re : Upper GI endoscopy procedure for Johnathon Vizcaino Dear Dr. Lombardi This procedure was performed on Monday, August 26, 2024. My impressions and recommendations are as follows: Impressions : - LA Grade A reflux esophagitis with no bleeding. Biopsied. - Bilious gastric fluid. - Erythematous mucosa in the gastric body. Biopsied. - No gross lesions in the second portion of the duodenum. Recommendations : - Discharge patient to home. - Resume previous diet. - Continue present medications. - Await pathology results. My findings are described in the full procedure note, which is enclosed. If I can be of further assistance, please feel free to contact me at . Sincerely, Anthony Marcos, 08/26/2024 7:24:15 AM This report has been signed electronically.
--- NOTE | 2024-08-26 07:27 | OP.CCLET_ITS ---
08/26/2024 Terrence Lombardi [address] [place] [address] Re : Colonoscopy procedure for Johnathon Vizcaino Dear Dr. Lombardi This procedure was performed on Monday, August 26, 2024. My impressions and recommendations are as follows: Impressions : - Non-bleeding internal hemorrhoids. - Congested mucosa in the recto-sigmoid colon, in the sigmoid colon and in the transverse colon. Biopsied. - The examination was otherwise normal on direct and retroflexion views. - The examined portion of the ileum was normal. Biopsied. Recommendations : - Discharge patient to home. - Resume previous diet. - Continue present medications. - Await pathology results. - Repeat colonoscopy in 10 years for screening purposes. My findings are described in the full procedure note, which is enclosed. If I can be of further assistance, please feel free to contact me at . Sincerely, Anthony Marcos, 08/26/2024 7:27:02 AM This report has been signed electronically.
--- NOTE | 2024-08-26 07:27 | OP.COLON_ITS ---
Patient Name: Johnathon Vizcaino Procedure Date: 08/26/2024 7:03 AM Date of : 1985 Age: 39 Procedure: Colonoscopy Indications: Generalized abdominal pain, Clinically significant diarrhea of unexplained origin Providers: Anthony Marcos DO Referring MD: Terrence Lombardi Medicines: Monitored Anesthesia Care Patient Profile: This is a 39 year old female. Refer to note in patient chart for documentation of history and physical. Patient has symptoms of chronic abdominal cramping, chronic epigastric abdominal pain, chronic dyspepsia and chronic nausea. Last Colonoscopy: several years ago. Complications: No immediate complications. Procedure: Pre-Anesthesia Assessment: - Prior to the procedure, a History and Physical was performed, and patient medications and allergies were reviewed. The patient is competent. The risks and benefits of the procedure and the sedation options and risks were discussed with the patient. All questions were answered and informed consent was obtained. Patient identification and proposed procedure were verified by the physician in the pre-procedure area. Mental Status Examination: alert and oriented. Airway Examination: normal oropharyngeal airway and neck mobility. Respiratory Examination: clear to auscultation. CV Examination: normal. Prophylactic Antibiotics: The patient does not require prophylactic antibiotics. Prior Anticoagulants: The patient has taken no anticoagulant or antiplatelet agents except for NSAID medication. ASA Grade Assessment: II - A patient with mild systemic disease. After reviewing the risks and benefits, the patient was deemed in satisfactory condition to undergo the procedure. The anesthesia plan was to use monitored anesthesia care (MAC). Immediately prior to administration of medications, the patient was re-assessed for adequacy to receive sedatives. The heart rate, respiratory rate, oxygen saturations, blood pressure, adequacy of pulmonary ventilation, and response to care were monitored throughout the procedure. The physical status of the patient was re-assessed after the procedure. After I obtained informed consent, the scope was passed under direct vision. Throughout the procedure, the patient's blood pressure, pulse, and oxygen saturations were monitored continuously. The Colonoscope was introduced through the anus and advanced to the terminal ileum. The colonoscopy was performed without difficulty. The patient tolerated the procedure well. The quality of the bowel preparation was adequate. The terminal ileum, ileocecal valve, appendiceal orifice, and rectum were photographed. Scope In: 7:06:02 AM Scope Withdrawal Time 0 hours 10 minutes 31 seconds Scope Out: 7:19:45 AM Total Procedure Duration Time 0 hours 13 minutes 43 seconds Findings: The perianal and digital rectal examinations were normal. Non-bleeding internal hemorrhoids were found during retroflexion. The hemorrhoids were Grade I (internal hemorrhoids that do not prolapse). An area of mildly congested mucosa was found in the recto-sigmoid colon, in the sigmoid colon and in the transverse colon. Biopsies were taken with a cold forceps for histology. Verification of patient identification for the specimen was done. Estimated blood loss was minimal. The exam was otherwise without abnormality on direct and retroflexion views. The terminal ileum appeared normal. Biopsies were taken with a cold forceps for histology. Verification of patient identification for the specimen was done. Estimated blood loss was minimal. A few small-mouthed diverticula were found in the sigmoid colon, ascending colon and cecum. Impression: - Non-bleeding internal hemorrhoids. - Congested mucosa in the recto-sigmoid colon, in the sigmoid colon and in the transverse colon. Biopsied. - The examination was otherwise normal on direct and retroflexion views. - The examined portion of the ileum was normal. Biopsied. Recommendation: - Discharge patient to home. - Resume previous diet. - Continue present medications. - Await pathology results. - Repeat colonoscopy in 10 years for screening purposes. Procedure Code(s): --- Professional --- 99528, Colonoscopy, flexible; with biopsy, single or multiple CPT copyright 2021 [employer]. All rights reserved. The codes documented in this report are preliminary and upon medical record coder review may be revised to meet current compliance requirements. Anthony Marcos DO 08/26/2024 7:27:02 AM This report has been signed electronically. Number of Addenda: 0 Note Initiated On: 08/26/2024 7:03 AM
--- NOTE | 2024-08-26 07:34 | PCM.POST.ANE ---
Anesthesia: Postop Eval I Current Vital Signs Temperature: 97 F Pulse Rate: 82 Blood Pressure: 94/69 Respiratory Rate: 16 Pulse Ox: 97 Oxygen Delivery Method: Room Air Assessment Airway patent: Yes Spontaneous unlabored respirations: Yes Mental status: Asleep nausea: No Vomiting: No Anesthesia Complication: No Fluid Hydration Crystalloid volume administer (ml): 60 Total IV fluid infused: 60 Progress Note Anesthesia document: Postop Eval 1 completed: Yes
--- NOTE | 2024-08-26 07:37 | PCM.POSTANE2 ---
Anesthesia Postop Eval I Sum Postop Eval Completion status Anesthesia document: Postop Eval 1 completed: Yes Anesthesia Postop Eval I Summary Anesthesia Postop Eval I Summary: Anesthesia Postop Eval I: Assessment Summary Airway patent Yes 08/26/24 07:35 [email or web address] Spontaneous unlabored Yes 08/26/24 07:35 [email or web address] respirations Mental status Asleep 08/26/24 07:35 [email or web address] nausea No 08/26/24 07:35 [email or web address] Vomiting No 08/26/24 07:35 [email or web address] Anesthesia Postop Eval I: Fluid Summary Crystalloid volume administer 60 08/26/24 07:35 [email or web address] (ml) Colloids volume administered ( ml) Blood Product volume administered (ml) Total IV fluid infused 60 08/26/24 07:35 [email or web address] Anesthesia Postop Eval I: Summary Notes Anesthesia Complication No 08/26/24 07:35 [email or web address] Anesthesia Complication Comment: Post-operative progress note Anesthesia: Postop Eval II Evaluation Mental status: Awake Pain Level: 0 nausea: No Vomiting: No
== END 2024-08-26 08:28 | disposition home or self-care (01) ==
LOC: EN 05:38 → AC 05:39
PROVIDERS: Anesthesiology; PCP Family Medicine; Referring Provider Family Medicine; Visit Provider Internal Medicine Gastroenterology
PROC: 0DJD8ZZ Inspection of Lower Intestinal Tract, Via Natural or Artificial Opening Endoscopic (ICD-10-PCS; CPT 45378; principal; 2024-08-26 06:25)
DX: K62.5 Hemorrhage of anus and rectum (principal); K21.00 Gastro-esophageal reflux disease with esophagitis, without bleeding; K64.0 First degree hemorrhoids; K76.0 Fatty (change of) liver, not elsewhere classified; J45.909 Unspecified asthma, uncomplicated; Z79.51 Long term (current) use of inhaled steroids; Z98.51 Tubal ligation status; Z90.49 Acquired absence of other specified parts of digestive tract; K62.89 Other specified diseases of anus and rectum; R10.30 Lower abdominal pain, unspecified; R10.13 Epigastric pain; K59.00 Constipation, unspecified; R11.14 Bilious vomiting; K31.89 Other diseases of stomach and duodenum; K63.89 Other specified diseases of intestine; K29.70 Gastritis, unspecified, without bleeding
CPT/HCPCS: 45380; 43239; 81025; 88305; 88312; 88342; A4216; J2405

== ENCOUNTER → 2024-08-28 | Outpatient (CLI) | payer BC, SELFPAY | END | disposition home or self-care (01) | LOC: LAB 15:27 | PROVIDERS: PCP Family Medicine; Referring Provider Nurse Practitioner Acute Care; Visit Provider Nurse Practitioner Acute Care | DX: K76.0 Fatty (change of) liver, not elsewhere classified (principal) | CPT/HCPCS: 36415 ==

== ENCOUNTER 2025-08-10 17:19 | Emergency (ER) | payer BC, SELFPAY ==
[2025-08-10 17:20] VITALS: BP 114/79; PULSE 89; RESP 16; TEMP 36.6; O2SAT 99; BMI 33.9
[2025-08-10] MEDS: Lidocaine 1% (20 ml mdv) 20 ML Vial 10 ML INFILT (19:51)
[2025-08-10] MEDS: HYDROcodone Bitartrate/Apap 5/325 Tablet PO ×2 (20:36→22:01)
[2025-08-10 21:00] VITALS: BP 110/60; PULSE 71; RESP 16; O2SAT 98
[2025-08-10 21:37] VITALS: BP 114/61; PULSE 66; RESP 18; TEMP 36.6; O2SAT 99
--- NOTE | 2025-08-10 21:48 | EX.ED.DYSGE1 ---
HPI History of Present Illness Chief Complaint: Other, Pain/Inj Narrative Narrative: Patient is a 32-year-old female with past medical history of of asthma, IBS, anxiety who presented to the emergency department chief complaint of rectal pain. Patient also complained of left ear pain after blowing her ear the other days she has been fighting a upper respiratory infection. States that she does have a history of hemorrhoids she called Dr. Marcos's office and he advised her to come to the emergency department to be evaluated. [facility] Medical History Liver fibrosis Fatty liver Wears glasses Alcohol use History of steroid therapy Difficulty swallowing History of ulceration Non-smoker Asthma History of pain when walking History of irregular heartbeat Polycystic bilateral ovaries IBS (irritable bowel syndrome) Back pain Anxiety Home Medications ?Medication ?Instructions ?Recorded ?Last Taken ?Type Diltiazem 2% / Lidocaine 5% #1 ea 07/08/24 Unknown Rx ointment (compound) (Diltiazem 2%/Lidocaine 5% ointment (compound)) cetirizine 10 mg tablet (Zyrtec) 10 mg PO QDAY PRN allergy symptoms 07/08/24 Unknown History fluticasone furoate 27.5 2 spray intranasal QDAY PRN 07/08/24 08/24/24 History mcg/actuation nasal allergy symptoms spray,suspension (Flonase Sensimist) meclizine 25 mg tablet 25 mg PO QDAY PRN dizziness 07/08/24 Unknown History polyethylene glycol 3350 17 4 g PO QDAY PRN STOOL SOFTENER 07/08/24 Unknown History gram/dose oral powder (Miralax) vibegron 75 mg tablet (Gemtesa) 75 mg PO QDAY 07/08/24 08/23/24 History albuterol sulfate 90 mcg/actuation 2 puff inhalation Q4H PRN PRN 08/21/24 Unknown History aerosol inhaler wheezing amitriptyline 50 mg tablet 50 mg PO QHS 08/21/24 08/24/24 History hydrocortisone acetate 25 mg 25 mg MT QHS PRN rectal pain and 09/11/24 Unknown Rx rectal suppository (Anusol-HC) hemorrhoids #12 ea pantoprazole 20 mg tablet,delayed 20 mg PO BID #180 tabs 09/11/24 Unknown Rx release linaclotide 290 mcg capsule 290 mcg PO QAM #90 caps 12/17/24 Unknown Rx (Linzess) ondansetron 4 mg disintegrating 4 mg PO Q6H PRN nausea and 08/10/25 Unknown Rx tablet vomiting #20 tabs oxycodone-acetaminophen 5 mg-325 1 tab PO Q6H PRN pain 2 days #8 08/10/25 Unknown Rx mg tablet (Endocet) tabs sennosides 8.6 mg-docusate sodium 1 tab-cap PO BID PRN constipation 08/10/25 Unknown History 50 mg tablet (Senna with Docusate Sodium) Allergy/AdvReac Type Severity Reaction Status Date / Time No Known Allergies Allergy Verified 08/10/25 17:22 Surgical History History of midurethral sling procedure Hx of unilateral salpingectomy Hx of sinus surgery Hx of tubal ligation Hx of tonsillectomy History of 2 sections History of cholecystectomy Social History household members: family and children Smoking Status: Never smoker substance use type: does not use ROS ROS ED ROS Narrative Constitutional: Denies any fevers or chills Abdomen: Denies abdominal pain nausea vomit diarrhea Rectal: Complains of rectal pain and concern for hemorrhoid as noted above : Denies urinary symptoms Neurological: Denies any numbness, weakness, Musculoskeletal: Denies back pain Skin: Denies any rashes or lesions EXAM Physical Exam Narrative Exam Narrative: General: Patient is lying in bed did appear uncomfortable secondary to rectal pain Head: Atraumatic, normocephalic Eyes: PERRL bilaterally, EOMI bilaterally, no conjunctival injection noted Neck: Soft, supple, trachea midline Cardiovascular: Regular rate and rhythm Abdomen: No tenderness to palpation, soft, nondistended Rectal: Patient has a thrombosed hemorrhoid noted is tender to palpation firm in nature Extremities: + 5/5 strength in the bilateral upper and lower extremities Neurological: Patient following commands knew that she was at [facility] years 2024 Skin: See rectal Const Vital Signs: 08/10/25 17:20 08/10/25 19:17 08/10/25 21:00 Temperature 98 F Temperature Source Oral Pulse Rate 89 71 Respiratory Rate 16 16 Respiratory Effort Normal Non-Labored Respiratory Pattern Normal Blood Pressure 114/79 110/60 Blood Pressure Mean 90 76 Pulse Ox 99 98 Oxygen Delivery Method Room Air Room Air 08/10/25 21:37 Temperature 98 F Temperature Source Pulse Rate 66 Respiratory Rate 18 Respiratory Effort Respiratory Pattern Blood Pressure 114/61 Blood Pressure Mean 78 Pulse Ox 99 Oxygen Delivery Method MDM MDM MDM Narrative Medical decision making narrative: Patient is a 32-year-old female who presented to the emergency department the chief complaint of hemorrhoid and rectal pain as well as left ear pain. On the differential diagnosis includes but limited to external hemorrhoid, thrombosed hemorrhoid, ruptured tympanic membrane, upper restaurant infection secondary viral etiology, fluid behind her tympanic membrane. Patient tympanic membrane appears to be intact no evidence of perforation there is small amount of fluid behind the eardrum however no concern for infection. Patient had a perianal block performed followed by incision and drainage and was noted to be a thrombosed hemorrhoid see procedure note for some details. She is advised to do sitz bath's after bowel movements and follow-up with a general surgeon that she was referred to as well as her primary care physician. She is encouraged return with worsening symptoms or concerns. She is agreeable to plan all questions answered she was discharged home in stable condition Procedure note Timeout protocol was performed prior to initiating procedure. The area was prepped and draped in the usual, sterile manner. The site was anesthetized with perianal block with 1% lidocaine without epinephrine. A linear incision along the local skin lines were made and the clot was expressed from the thrombosed hemorrhoid. Bleeding was minimal. Packing none Follow-up: The patient tolerated procedure well without complications. Standard postprocedure care is explained and return precautions were given. Discharge Plan Triage Chief Complaint: Other, Pain/Inj Other Complaint: Ear Problem ED Provider: Duog Umaña Dx/Rx/DC Orders Clinical Impression: Hemorrhoids, thrombosed, Ear pain, left, History of IBS Prescriptions: New oxycodone-acetaminophen [Endocet] 5-325 mg tablet 1 tab PO Q6H PRN (Reason: pain) 2 Days Qty: 8 0RF ondansetron 4 mg tablet,disintegrating 4 mg PO Q6H PRN (Reason: nausea and vomiting) Qty: 20 0RF No Action polyethylene glycol 3350 [Miralax] 17 gram/dose powder 4 g PO QDAY PRN (Reason: STOOL SOFTENER) cetirizine [Zyrtec] 10 mg tablet 10 mg PO QDAY PRN (Reason: allergy symptoms) Gemtesa 75 mg tablet 75 mg PO QDAY Flonase Sensimist 27.5 mcg/actuation spray,suspension 2 spray intranasal QDAY PRN (Reason: allergy symptoms) Rx Instructions: into each nostril meclizine 25 mg tablet 25 mg PO QDAY PRN (Reason: dizziness) (DME) Diltiazem 2%/Lidocaine 5% ointment (compound) Ointment See Rx Instructions .Route Qty: 1 0RF Rx Instructions: apply a pea size amount into rectum 2-3 times a day as needed for rectal pain pantoprazole 20 mg tablet,delayed release (DR/EC) 20 mg PO BID Qty: 180 1RF hydrocortisone acetate [Anusol-HC] 25 mg suppository 25 mg MT QHS MDD 1 PRN (Reason: rectal pain and hemorrhoids) Qty: 12 0RF Linzess 290 mcg capsule 290 mcg PO QAM Qty: 90 3RF Rx Instructions: take once daily 30 minutes before first meal amitriptyline 50 mg tablet 50 mg PO QHS albuterol sulfate 90 mcg/actuation HFA aerosol inhaler 2 puff inhalation Q4H PRN PRN (Reason: wheezing) sennosides-docusate sodium [Senna with Docusate Sodium] 8.6-50 mg tablet 1 tab-cap PO BID PRN (Reason: constipation) Primary Care Provider: Terrence Lombardi Referrals: Terrence Lombardi MD [Primary Care Provider, Family Practice] Kalpesh Merritt MD [Med Staff - Active Staff, General Surgery] Activity Restrictions/Additional Instructions: After bowel movements do sitz bath's as we discussed. She reviewed using stool softener such as MiraLAX to prevent straining. Follow-up with the general surgeon you are referred to and return with worsening symptoms or concerns. Rotate Tylenol and ibuprofen [id number] for mild to moderate pain when you do this you can take something over 3 hours pain max dose Tylenol in 24 hours 4000 mg max dose of ibuprofen in 24 hours to 200 mg. You were given a few pain pills for severe pain do not operate anything under the influence this medication and take Zofran with this as it can upset your stomach. Print Language: Occitan Disposition Disposition: Home, Self Care
== END 2025-08-10 22:02 | disposition home or self-care (01) ==
PROVIDERS: Emergency Provider Emergency Medicine; PCP Family Medicine; Visit Provider Emergency Medicine
DX: K64.5 Perianal venous thrombosis (principal); H92.02 Otalgia, left ear; Z98.51 Tubal ligation status; Z90.49 Acquired absence of other specified parts of digestive tract; F41.9 Anxiety disorder, unspecified; K58.9 Irritable bowel syndrome, unspecified
CPT/HCPCS: 46083; 99284